=== PATIENT | male | born 1965 | race Caucasian/White ===

== ENCOUNTER 2016-11-22 21:55 | Emergency (ER) | payer MEDICAID ==
--- NOTE | 2016-11-22 23:27 | XR ---
EXAM: XR Lumbar Spine, 3 Views CLINICAL HISTORY: Reason: Pain TECHNIQUE: Frontal and lateral views of the lumbar spine. COMPARISON: No relevant prior studies available. FINDINGS: Vertebrae: Superior endplate Schmorl's nodes of L2 and L3. No acute fracture. Normal alignment. Disc spaces: Mild disc space narrowing of L4/L5 and L5/S1. Marginal osteophytes L3/L4. Soft tissues: Unremarkable. IMPRESSION: No acute findings. Superior endplate Schmorl's nodes of L2 and L3.
[2016-11-22] MEDS ORDERED: CYCLOBENZAPRINE 10MG STARTER 3 TAB BTL PO STA (23:34)
--- NOTE | 2016-11-22 23:36 | ED ---
General Adult HPI - General Chief complaint: Back Pain/Injury Stated complaint: Back Pain Time Seen by Provider: 11/22/16 22:45 Source: patient, RN notes reviewed Mode of arrival: ambulatory Limitations: no limitations - History of Present Illness Initial comments: patient 51-year-old male who presents emergency room today with chief complaint of increased lower back pain over the last day. He does admit that yesterday he was using a skid steer. He denies any specific injury or trauma at the time. He states that he noticed that he had some increased stiffness in his lower back. He states worse when he stands up straight. He states he did go to the chiropractor today with little relief the symptoms. Patient does admit that he tried ibuprofen with little relief. He also admits that he is on a blood thinner due to a cardiac stent. Patient denies any other complaints or symptoms. Denies any bowel or bladder incontinence retention. Denies any saddle anesthesia. Denies any lumbar radiculopathy. Patient denies any recent fever, chills, shortness of breath, chest pain, abdominal pain, nausea or vomiting, numbness or tingling, dysuria or hematuria, constipation or diarrhea, headaches or visual changes, or any other complaints. - Related Data Home Medications Medication Instructions Recorded Confirmed Pioglitazone [Actos] 45 mg PO DAILY 03/16/15 03/06/16 glipiZIDE XL [Glucotrol XL] 10 mg PO BID-W/MEALS 03/16/15 03/06/16 Aspirin 81 mg PO HS 03/06/16 03/06/16 Cholecalciferol [Vitamin D3] 1,000 unit PO DAILY 03/06/16 03/06/16 Rosuvastatin [Crestor] 40 mg PO HS 03/06/16 03/06/16 Previous Rx's Medication Instructions Recorded Lisinopril [Zestril] 10 mg PO DAILY #30 tab 03/17/15 Metoprolol Tartrate [Lopressor] 25 mg PO BID #60 tab 03/17/15 Ticagrelor [Brilinta] 90 mg PO BID #60 tab 03/17/15 Cyclobenzaprine [Flexeril] 10 mg PO TID #20 tab 11/22/16 Hydrocodone/Acetaminophen [[place] 1 each PO Q6HR PRN #20 tab 11/22/16 5-325] Allergies Allergy/AdvReac Type Severity Reaction Status Date / Time No Known Allergies Allergy Verified 11/22/16 22:14 Review of Systems ROS Statement: Those systems with pertinent positive or pertinent negative responses have been documented in the HPI. ROS Other: All systems not noted in ROS Statement are negative. Past Medical History Past Medical History: Coronary Artery Disease (CAD), Chest Pain / Angina, Diabetes Mellitus, Hyperlipidemia, Hypertension, Osteoarthritis (OA) History of Any Multi-Drug Resistant Organisms: None Reported Past Surgical History: Heart Catheterization With Stent, Hernia Repair, Orthopedic Surgery Additional Past Surgical History / Comment(s): RT knee SX, stent to LAD in 2014(RT GROIN SITE WAS USED) Past Anesthesia/Blood Transfusion Reactions: No Reported Reaction Date of Last Stent Placement:: 03/2015 Past Psychological History: No Psychological Hx Reported Smoking Status: Never smoker Past Alcohol Use History: None Reported Past Drug Use History: None Reported - Past Family History Father History Unknown: Yes Family Medical History: Diabetes Mellitus, Hypertension Mother History Unknown: Yes Family Medical History: Cancer Additional Family Medical History / Comment(s): bladder General Exam - General Exam Comments Initial Comments: General: The patient is awake and alert, in no distress, and does not appear acutely ill. Eye: Pupils are equal, round and reactive to light, extra-ocular movements are intact. No nystagmus. There is normal conjunctiva bilaterally. No signs of icterus. Ears, nose, mouth and throat: There are moist mucous membranes and no oral lesions. Neck: The neck is supple, there is no tenderness or JVD. Cardiovascular: There is a regular rate and rhythm. No murmur, rub or gallop is appreciated. Respiratory: Lungs are clear to auscultation, respirations are non-labored, breath sounds are equal. No wheezes, stridor, rales, or rhonchi. Musculoskeletal: Normal ROM,no appearance of thoracic, lumbar spine no step- offs forms appreciated. Mild tenderness to the lower lumbar on palpation. Pain reproduced with certain movements. Strength 5/5. Sensation intact. Pulses equal bilaterally 2+. Neurological: A&O x 3. CN II-XII intact, There are no obvious motor or sensory deficits. Coordination appears grossly intact. Speech is normal. Skin: Skin is warm and dry and no rashes or lesions are noted. Psychiatric: Cooperative, appropriate mood & affect, normal judgment. Limitations: no limitations Course Vital Signs 11/22/16 22:11 Temperature 97.8 F Pulse Rate 146 H Respiratory 18 Rate Blood Pressure 146/105 O2 Sat by Pulse 98 Oximetry Medical Decision Making - Medical Decision Making x-rays reviewed and shows no acute fracture abnormalities. Results were discussed with patient. Patient advised to use a muscle relaxer will be given a short prescription of pain medication. Advised to follow-up family doctor for further evaluation and possible MRI. Disposition Clinical Impression: Acute low back pain Disposition: HOME SELF-CARE Condition: Good Instructions: Acute Low Back Pain (ED) Additional Instructions: Please use medication as discussed. Please follow-up with family doctor in the next 2 days of symptoms have not improved. Please return to emergency room if the symptoms increase or worsen or for any other concerns. Prescriptions: Cyclobenzaprine [Flexeril] 10 mg PO TID #20 tab Hydrocodone/Acetaminophen [[place] 5-325] 1 each PO Q6HR PRN #20 tab PRN Reason: Pain Time of Disposition: 23:35
[2016-11-22 23:57] VITALS: BP 152/80; PULSE 80; RESP 16; TEMP 97.4
== END 2016-11-22 23:50 | disposition home or self-care (01) ==
LOC: EC 21:55
DX: M54.5 Low back pain (principal); E11.9 Type 2 diabetes mellitus without complications; E78.5 Hyperlipidemia, unspecified; M19.90 Unspecified osteoarthritis, unspecified site; Z79.82 Long term (current) use of aspirin; Z79.84 Long term (current) use of oral hypoglycemic drugs; Z79.899 Other long term (current) drug therapy
CPT/HCPCS: 72100; 99283

== ENCOUNTER → 2016-12-03 | Outpatient (CLI) | payer MEDICAID ==
--- NOTE | 2016-12-03 16:11 | MR ---
EXAMINATION TYPE: MR lumbar spine wo con DATE OF EXAM: 12/03/2016 3:12 PM COMPARISON: Radiographs 11/22/2016 HISTORY: 51-year-old male with low Back Pain x2 weeks TECHNIQUE: Multiplanar, multisequence images of the lumbar spine were acquired. FINDINGS: Vertebral body heights are preserved and alignment is maintained. Mild diffuse heterogeneity of marrow signal without suspicious bone marrow replacement. Intervertebral discs show variable mild desiccation and disc bulges. Facet degenerative change mid to lower lumbar spine. Conus medullaris is normal. There is congenital spinal canal stenosis with AP canal dimension of 9 mm. In addition, there is prom inent dorsal epidural fat within the mid to lower lumbar spine further narrowing the thecal sac. At T12-L1, no spinal canal or foraminal stenosis. At L1-L2, no significant spinal canal or foraminal stenosis. At L2-L3, there is mild congenital canal narrowing with minimal bilateral inferior neuroforaminal tone rowing. At L3-L4, there is moderate spinal canal stenosis secondary to bulging disc, congenital canal narrowi ng, prominent dorsal epidural fat, ligamentum flavum thickening, and facet degenerative change. There is mild left neuroforaminal stenosis. At L4-L5, there is congenital canal narrowing with prominent dorsal epidural fat, ligamentum flavum t hickening, and hypertrophic facet arthropathy. In addition, there is a superimposed left paracentral disc protrusion. There may be slight superior migration of disc material. Changes result in a moderat e to severe spinal canal stenosis at this level with moderate left and mild right neuroforaminal sten osis. At L5-S1, facet degenerative change without significant spinal canal or foraminal stenosis. There is no prevertebral or paravertebral soft tissue abnormality seen. IMPRESSION: 1. Combination of mild congenital spinal canal stenosis with degenerative disc disease, facet arthrop athy, and prominent dorsal epidural fat diffusely narrows the spinal canal in the mid to lower lumbar spine. 2. Superimposed left paracentral disc extrusion has slight superior migration and contributes to a mo derate to severe spinal canal stenosis here. Moderate left and mild right neuroforaminal stenosis at this level.
== END | disposition home or self-care (01) ==
LOC: RADMRIMAIN 14:40
PROVIDERS: ATTEND Physician Assistant Medical
DX: M48.06 Spinal stenosis, lumbar region (principal); M51.16 Intervertebral disc disorders with radiculopathy, lumbar region; M46.96 Unspecified inflammatory spondylopathy, lumbar region; M99.73 Connective tissue and disc stenosis of intervertebral foramina of lumbar region
CPT/HCPCS: 72148

== ENCOUNTER 2017-01-29 18:13 | Emergency (ER) | payer MEDICAID ==
[2017-01-29 18:24] VITALS: BP 190/99; PULSE 72; RESP 20; TEMP 97.9
[2017-01-29] MEDS ORDERED: BACITRACIN 500 UNIT/GM OINT 28.4 GM TUBE TOPICAL ONE (18:33)
--- NOTE | 2017-01-29 18:34 | ED ---
Burn/Smoke HPI - General Chief complaint: Burn/Smoke Inhalation Stated complaint: Burn on Hand Time Seen by Provider: 01/29/17 18:25 Source: patient, RN notes reviewed Mode of arrival: ambulatory Limitations: no limitations - History of Present Illness Initial comments: 52-year-old male presents emergency Department chief complaint right hand logical burn. Patient states he was working on some wiring at his house. Patient states that the cause dark and it causes a burn over his thumb in index finger. Patient's tetanus is up-to-date within last 5 years. Patient states that he has full range of motion of the digits states there is moderate discomfort. Patient denies any chest pain or shortness of breath no headache no dizziness no other areas of kelly noted. - Related Data Home Medications Medication Instructions Recorded Confirmed Pioglitazone [Actos] 45 mg PO DAILY 03/16/15 03/06/16 glipiZIDE XL [Glucotrol XL] 10 mg PO BID-W/MEALS 03/16/15 03/06/16 Aspirin 81 mg PO HS 03/06/16 03/06/16 Cholecalciferol [Vitamin D3] 1,000 unit PO DAILY 03/06/16 03/06/16 Rosuvastatin [Crestor] 40 mg PO HS 03/06/16 03/06/16 Previous Rx's Medication Instructions Recorded Lisinopril [Zestril] 10 mg PO DAILY #30 tab 03/17/15 Metoprolol Tartrate [Lopressor] 25 mg PO BID #60 tab 03/17/15 Ticagrelor [Brilinta] 90 mg PO BID #60 tab 03/17/15 Cyclobenzaprine [Flexeril] 10 mg PO TID #20 tab 11/22/16 Hydrocodone/Acetaminophen [[place] 1 each PO Q6HR PRN #20 tab 11/22/16 5-325] Allergies Allergy/AdvReac Type Severity Reaction Status Date / Time No Known Allergies Allergy Verified 01/29/17 18:24 Review of Systems ROS Statement: Those systems with pertinent positive or pertinent negative responses have been documented in the HPI. ROS Other: All systems not noted in ROS Statement are negative. Past Medical History Past Medical History: Coronary Artery Disease (CAD), Chest Pain / Angina, Diabetes Mellitus, Hyperlipidemia, Hypertension, Osteoarthritis (OA) History of Any Multi-Drug Resistant Organisms: None Reported Past Surgical History: Heart Catheterization With Stent, Hernia Repair, Orthopedic Surgery Additional Past Surgical History / Comment(s): RT knee SX, stent to LAD in 2014(RT GROIN SITE WAS USED) Past Anesthesia/Blood Transfusion Reactions: No Reported Reaction Date of Last Stent Placement:: 03/2015 Past Psychological History: No Psychological Hx Reported Smoking Status: Never smoker Past Alcohol Use History: None Reported Past Drug Use History: None Reported - Past Family History Father History Unknown: Yes Family Medical History: Diabetes Mellitus, Hypertension Mother History Unknown: Yes Family Medical History: Cancer Additional Family Medical History / Comment(s): bladder General Exam Limitations: no limitations General appearance: alert, in no apparent distress Respiratory exam: Present: normal lung sounds bilaterally. Absent: respiratory distress, wheezes, rales, rhonchi, stridor Cardiovascular Exam: Present: regular rate, normal rhythm, normal heart sounds. Absent: systolic murmur, diastolic murmur, rubs, gallop, clicks Extremities exam: Present: other (Right hand there is some blistering noted to the distal tip of the first digit and along the lateral portion of the second digit there is no circumferential kelly across any joint.) Neurological exam: Present: reflexes normal. Absent: motor sensory deficit Skin exam: Present: warm, dry Course Vital Signs 01/29/17 18:22 Temperature 97.9 F Pulse Rate 72 Respiratory 20 Rate Blood Pressure 190/99 O2 Sat by Pulse 98 Oximetry Medical Decision Making - Medical Decision Making 52-year-old male presented for electrical burn. Patient does have symptoms areas of second-degree burning with no circumferential joint kelly. Patient was given bacitracin was offered pain meds he declined. Patient advised to take anti-inflammatories if he can. Disposition Clinical Impression: Electrical burn Disposition: HOME SELF-CARE Condition: Stable Instructions: Electrical Kelly in Adults (ED) Additional Instructions: Please return to the Emergency Department if symptoms worsen or any other concerns. Referrals: Prabhakar Osborne DO [Primary Care Provider] - 1-2 days Time of Disposition: 18:34
== END 2017-01-29 18:49 | disposition home or self-care (01) ==
LOC: EC 18:13
DX: T23.211A Burn of second degree of right thumb (nail), initial encounter (principal); T23.221A Burn of second degree of single right finger (nail) except thumb, initial encounter; T31.0 Burns involving less than 10% of body surface; E78.5 Hyperlipidemia, unspecified; I25.10 Atherosclerotic heart disease of native coronary artery without angina pectoris; E11.9 Type 2 diabetes mellitus without complications; M19.90 Unspecified osteoarthritis, unspecified site; Z79.82 Long term (current) use of aspirin; Z79.84 Long term (current) use of oral hypoglycemic drugs; Z79.899 Other long term (current) drug therapy; W86.0XXA Exposure to domestic wiring and appliances, initial encounter; Y92.009 Unspecified place in unspecified non-institutional (private) residence as the place of occurrence of the external cause; Y93.89 Activity, other specified
CPT/HCPCS: 99284

== ENCOUNTER 2018-02-21 22:22 | Inpatient (IN) | payer MEDICAID ==
[2018-02-21 22:51] LABS: Basophils % (A) 1 %; Eosinophils # (A) 0.2 k/uL (0-0.7); Eosinophils % (A) 3 %; HCT 47.1 % (39.0-53.0); HGB 16.8 gm/dL (13.0-17.5); Lymphocytes % (A) 32 %; MCH 31.7 pg (25.0-35.0); MCHC 35.8 g/dL (31.0-37.0); MCV 88.7 fL (80.0-100.0); Mean Platelet Volume 7.4; Monocytes # (A) 0.4 k/uL (0-1.0); Monocytes % (A) 7 %; Neutrophils # (A) 3.5 k/uL (1.3-7.7); Neutrophils % (A) 55 %; Platelet Count 186 k/uL (150-450); RBC 5.31 m/uL (4.30-5.90); RDW 12.8 % (11.5-15.5); WBC 6.3 k/uL (3.8-10.6)
[2018-02-21 22:58] LABS: Prothrombin Time 10.1 sec (9.0-12.0)
[2018-02-21] MEDS ORDERED: ASPIRIN 325 MG TAB PO STA (22:58)
--- NOTE | 2018-02-21 22:58 | ED ---
General Adult HPI - General Chief complaint: Chest Pain Stated complaint: Chest Pain Time Seen by Provider: 02/21/18 22:34 Source: patient, RN notes reviewed, old records reviewed Mode of arrival: ambulatory Limitations: no limitations - History of Present Illness Initial comments: 53-year-old male with history of CAD status post stent approximately 3 years ago presents for evaluation of chest pain. Patient's pain has been present for the past 1-1/2 days. Initially began on the right, has progressed to left- sided. Sharp in nature lasting just seconds. Patient states that he is also had some pain in his shoulder blade and left arm. Symptoms are similar to previous chest pain episode that resulted in stent placement. No nausea vomiting. No abdominal pain. He does report some diaphoresis and some dyspnea associated with his chest pain. No history of tobacco use. He is a diabetic and has history of hypertension. He's been off of his medication for the past several weeks secondary to family stressors. - Related Data Home Medications Medication Instructions Recorded Confirmed Pioglitazone [Actos] 45 mg PO DAILY 03/16/15 03/06/16 glipiZIDE XL [Glucotrol XL] 10 mg PO BID-W/MEALS 03/16/15 03/06/16 Aspirin 81 mg PO HS 03/06/16 03/06/16 Cholecalciferol [Vitamin D3] 1,000 unit PO DAILY 03/06/16 03/06/16 Rosuvastatin [Crestor] 40 mg PO HS 03/06/16 03/06/16 Previous Rx's Medication Instructions Recorded Lisinopril [Zestril] 10 mg PO DAILY #30 tab 03/17/15 Metoprolol Tartrate [Lopressor] 25 mg PO BID #60 tab 03/17/15 Ticagrelor [Brilinta] 90 mg PO BID #60 tab 03/17/15 Cyclobenzaprine [Flexeril] 10 mg PO TID #20 tab 11/22/16 Hydrocodone/Acetaminophen [[place] 1 each PO Q6HR PRN #20 tab 11/22/16 5-325] Allergies Allergy/AdvReac Type Severity Reaction Status Date / Time No Known Allergies Allergy Verified 02/21/18 22:27 Review of Systems ROS Statement: Those systems with pertinent positive or pertinent negative responses have been documented in the HPI. ROS Other: All systems not noted in ROS Statement are negative. Past Medical History Past Medical History: Coronary Artery Disease (CAD), Chest Pain / Angina, Diabetes Mellitus, Hyperlipidemia, Hypertension, Osteoarthritis (OA) History of Any Multi-Drug Resistant Organisms: None Reported Past Surgical History: Heart Catheterization With Stent, Hernia Repair, Orthopedic Surgery Additional Past Surgical History / Comment(s): RT knee SX, stent to LAD in 2014(RT GROIN SITE WAS USED) Past Anesthesia/Blood Transfusion Reactions: No Reported Reaction Date of Last Stent Placement:: 03/2015 Past Psychological History: No Psychological Hx Reported Smoking Status: Never smoker Past Alcohol Use History: None Reported Past Drug Use History: None Reported - Past Family History Father History Unknown: Yes Family Medical History: Diabetes Mellitus, Hypertension Mother History Unknown: Yes Family Medical History: Cancer Additional Family Medical History / Comment(s): bladder General Exam Limitations: no limitations General appearance: alert, in no apparent distress Head exam: Present: atraumatic, normocephalic Eye exam: Present: normal appearance, PERRL, EOMI ENT exam: Present: normal exam Neck exam: Present: normal inspection. Absent: tenderness, meningismus Respiratory exam: Present: normal lung sounds bilaterally. Absent: respiratory distress, wheezes Cardiovascular Exam: Present: regular rate, normal rhythm GI/Abdominal exam: Present: soft. Absent: distended, tenderness Extremities exam: Present: normal inspection, normal capillary refill. Absent: pedal edema, calf tenderness Neurological exam: Present: alert, oriented X3, CN II-XII intact. Absent: motor sensory deficit Psychiatric exam: Present: normal affect, normal mood Skin exam: Present: warm, dry, intact. Absent: cyanosis, diaphoretic Course Vital Signs 02/21/18 02/21/18 02/21/18 22:25 22:43 23:22 Temperature 98.4 F Pulse Rate 71 68 Pulse Rate [ 67 [employer] T[employer] ] Respiratory 18 18 Rate Blood Pressure 194/93 136/75 O2 Sat by Pulse 100 100 Oximetry EKG Findings - EKG Comments: EKG Findings:: EKG: Normal sinus rhythm, rate of 73, OR interval 154, QRS duration 90, QTC [address] segment elevation or depression T-wave flattening in the leads 3 and aVF. Medical Decision Making - Medical Decision Making 53-year-old male presenting with chest pain. Patient has history of CAD, he's been off his medications for the past several weeks to months. EKG is negative for ST segment elevation. CBC, CMP are within normal limits, troponin is negative. Patient is restarted on his home medications. He will be kept in observation for serial cardiac enzymes and cardiology consultation. - Lab Data Result diagrams: 02/21/18 22:35 02/21/18 22:35 Lab Results 02/21/18 02/21/18 02/21/18 Range/Units 22:35 22:35 22:35 WBC 6.3 (3.8-10.6) k/uL RBC 5.31 (4.30-5.90) m/uL Hgb 16.8 (13.0-17.5) gm/dL Hct 47.1 (39.0-53.0) % MCV 88.7 (80.0-100.0) fL MCH 31.7 (25.0-35.0) pg MCHC 35.8 (31.0-37.0) g/dL RDW 12.8 (11.5-15.5) % Plt Count 186 (150-450) k/uL Neutrophils % 55 % Lymphocytes % 32 % Monocytes % 7 % Eosinophils % 3 % Basophils % 1 % Neutrophils # 3.5 (1.3-7.7) k/uL Lymphocytes # 2.0 (1.0-4.8) k/uL Monocytes # 0.4 (0-1.0) k/uL Eosinophils # 0.2 (0-0.7) k/uL Basophils # 0.0 (0-0.2) k/uL PT (9.0-12.0) sec INR (<1.2) APTT (22.0-30.0) sec Sodium 137 (137-145) mmol/L Potassium 4.1 (3.5-5.1) mmol/L Chloride 102 (98-107) mmol/L Carbon Dioxide 26 (22-30) mmol/L Anion Gap 9 mmol/L BUN 14 (9-20) mg/dL Creatinine 0.70 (0.66-1.25) mg/dL Est GFR (CKD-EPI)AfAm >90 (>60 ml/min/1.73 sqM) Est GFR (CKD-EPI)NonAf >90 (>60 ml/min/1.73 sqM) Glucose 268 H (74-99) mg/dL Calcium 9.4 (8.4-10.2) mg/dL Magnesium 1.9 (1.6-2.3) mg/dL Total Bilirubin 0.5 (0.2-1.3) mg/dL AST 35 (17-59) U/L ALT 60 (21-72) U/L Alkaline Phosphatase 73 (38-126) U/L Total Creatine Kinase 170 (55-170) U/L CK-MB (CK-2) 1.8 (0.0-2.4) ng/mL CK-MB (CK-2) Rel Index 1.1 Troponin I <0.012 (0.000-0.034) ng/mL NT-Pro-B Natriuret Pep pg/mL Total Protein 7.4 (6.3-8.2) g/dL Albumin 4.5 (3.5-5.0) g/dL 02/21/18 02/21/18 Range/Units 22:35 22:35 WBC (3.8-10.6) k/uL RBC (4.30-5.90) m/uL Hgb (13.0-17.5) gm/dL Hct (39.0-53.0) % MCV (80.0-100.0) fL MCH (25.0-35.0) pg MCHC (31.0-37.0) g/dL RDW (11.5-15.5) % Plt Count (150-450) k/uL Neutrophils % % Lymphocytes % % Monocytes % % Eosinophils % % Basophils % % Neutrophils # (1.3-7.7) k/uL Lymphocytes # (1.0-4.8) k/uL Monocytes # (0-1.0) k/uL Eosinophils # (0-0.7) k/uL Basophils # (0-0.2) k/uL PT 10.1 (9.0-12.0) sec INR 1.0 (<1.2) APTT 25.0 (22.0-30.0) sec Sodium (137-145) mmol/L Potassium (3.5-5.1) mmol/L Chloride (98-107) mmol/L Carbon Dioxide (22-30) mmol/L Anion Gap mmol/L BUN (9-20) mg/dL Creatinine (0.66-1.25) mg/dL Est GFR (CKD-EPI)AfAm (>60 ml/min/1.73 sqM) Est GFR (CKD-EPI)NonAf (>60 ml/min/1.73 sqM) Glucose (74-99) mg/dL Calcium (8.4-10.2) mg/dL Magnesium (1.6-2.3) mg/dL Total Bilirubin (0.2-1.3) mg/dL AST (17-59) U/L ALT (21-72) U/L Alkaline Phosphatase (38-126) U/L Total Creatine Kinase (55-170) U/L CK-MB (CK-2) (0.0-2.4) ng/mL CK-MB (CK-2) Rel Index Troponin I (0.000-0.034) ng/mL NT-Pro-B Natriuret Pep 52 pg/mL Total Protein (6.3-8.2) g/dL Albumin (3.5-5.0) g/dL Disposition Clinical Impression: Chest pain Disposition: ADMITTED IP TO THIS HOSP Condition: Stable Referrals: Prabhakar Osborne DO [Primary Care Provider] - 1-2 days Decision to Admit Reason: Admit from EC Decision Date: 02/22/18 Decision Time: 00:06
--- NOTE | 2018-02-21 23:00 | XR ---
EXAMINATION TYPE: XR chest 2V DATE OF EXAM: 02/21/2018 COMPARISON: 03/06/2016 HISTORY: Chest pain TECHNIQUE: Frontal and lateral views of the chest are obtained. FINDINGS: Heart and mediastinum are normal. Lungs are clear. Diaphragm is normal. Bony thorax is int act. There are chest leads. IMPRESSION: Normal chest. No change.
[2018-02-21 23:08] LABS: ALT 60 U/L (21-72); AST 35 U/L (17-59); Albumin 4.5 g/dL (3.5-5.0); Alkaline Phosphatase 73 U/L (38-126); Anion Gap 9 mmol/L; Blood Urea Nitrogen 14 mg/dL (9-20); Calcium 9.4 mg/dL (8.4-10.2); Carbon Dioxide 26 mmol/L (22-30); Chloride 102 mmol/L (98-107); Glucose 268 mg/dL (74-99); Magnesium 1.9 mg/dL (1.6-2.3); Potassium 4.1 mmol/L (3.5-5.1); Sodium 137 mmol/L (137-145); Total Bilirubin 0.5 mg/dL (0.2-1.3); Total Protein 7.4 g/dL (6.3-8.2)
[2018-02-21 23:12] LABS: Creatine Kinase 170 U/L (55-170)
[2018-02-21 23:24] LABS: Creatine Kinase MB 1.8 ng/mL (0.0-2.4); Troponin I <0.012 ng/mL (0.000-0.034)
[2018-02-21] MEDS ORDERED: HYDROcodone/APAP 5-325MG 1 EACH TAB PO PRN (23:36)
[2018-02-22] MEDS ORDERED: ONDANSETRON 4 MG/2 ML VIAL IVP PRN (00:04)
[2018-02-22] MEDS ORDERED: NALOXONE 0.4 MG/ML 1 ML VIAL IV PRN (00:04)
[2018-02-22 07:28] LABS: Glucose,Whole Blood 266 mg/dL (75-99)
[2018-02-22 08:16] LABS: Creatine Kinase 105 U/L (55-170)
[2018-02-22 08:27] LABS: Creatine Kinase MB 1.4 ng/mL (0.0-2.4); Troponin I <0.012 ng/mL (0.000-0.034)
[2018-02-22] MEDS ORDERED: TICAGRELOR 90 MG TAB PO SCH (09:00)
--- NOTE | 2018-02-22 10:31 | CONS ---
CONSULTATION DATE OF SERVICE: 02/22/2018. HISTORY: Mr. Manning is a 53-year-old gentleman who is seen for cardiac evaluation. This patient has a known history of coronary artery disease. Patient had a stent to the LAD about 3 years ago. The patient was admitted with symptoms of atypical angina about 1-1/2 years ago. At that time, the patient had a stress echo study done which was normal. Since then, the patient has not been seen in the office. The patient has a history of diabetes and hyperlipidemia. The patient states he is not taking his medications regularly. He takes aspirin intermittently and has not been taking Brilinta. The patient is moderately active physically. He does have a history of hypertension. Denies any history of tobacco use. MEDICATIONS: Patient's home medications are reviewed. PAST MEDICAL HISTORY: Includes diabetes, hypertension, hyperlipidemia, hernia repair, orthopedic surgery, right knee surgery. PHYSICAL EXAMINATION: Physical examination in the emergency room revealed the patient's blood pressure was elevated. Patient's blood pressure is now 117/76 mmHg, heart rate is 65 per minute. Head and ENT examination is negative. Neck is supple. There is no increase in jugular venous pressure. Both the carotid pulses are felt. There is no bruit. Chest is symmetrical. Heart the PMI is not felt. First and second heart sounds are normal. There is no evidence of any murmur. Lungs are clinically clear to auscultation and percussion. Abdomen is soft. Liver and spleen are not enlarged. Bowel sounds are heard. Extremities, peripheral pulses are 2+. EKG shows normal sinus rhythm without any acute ischemic changes. Cardiac enzymes are normal. The patient's EKG is normal. IMPRESSION: Intermittent chest discomfort and shortness of breath yesterday, suggestive of unstable angina. Rule out any evidence of significant re-stenosis. Patient is not complying with his medications. He was not taking Brilinta. Patient has a history of hypertension and diabetes as well as hyperlipidemia. RECOMMENDATIONS: We will do serial EKGs. Echo and Doppler study will be done. The patient is advised further evaluation with cardiac catheterization for definitive diagnosis. At present, I would discontinue the Brilinta since his angioplasty was done about 3 years ago and he has not been taking his medications recently. MMODL / IJN: [id number] /
[2018-02-22 11:25] LABS: Creatine Kinase 93 U/L (55-170)
[2018-02-22] MEDS: glipiZIDE 5 MG TAB PO SCH ×2 (11:28→17:47)
[2018-02-22] MEDS: LISINOPRIL 10 MG TAB PO SCH (11:28)
[2018-02-22] MEDS: METOPROLOL TARTRATE 25 MG TAB PO SCH ×2 (11:28→20:15)
[2018-02-22 11:37] LABS: Creatine Kinase MB 1.3 ng/mL (0.0-2.4); Troponin I <0.012 ng/mL (0.000-0.034)
[2018-02-22 11:46] LABS: Glucose,Whole Blood 366 mg/dL (75-99)
--- NOTE | 2018-02-22 15:19 | ECHOF ---
Referral Reason:chest pain MEASUREMENTS -------- HEIGHT: 170.2 cm WEIGHT: 91.2 kg BP: RVIDd: 2.9 cm (< 3.3) IVSd: 1.4 cm (0.6 - 1.1) LVIDd: 4.1 cm (3.9 - 5.3) LVPWd: 1.2 cm (0.6 - 1.1) IVSs: 1.7 cm LVIDs: 3.0 cm LVPWs: 1.5 cm LA Diam: 4.1 cm (2.7 - 3.8) LAESV Index (A-L): 26.84 ml/m Ao Diam: 2.9 cm (2.0 - 3.7) AV Cusp: 2.0 cm (1.5 - 2.6) LA Diam: 5.1 cm (2.7 - 3.8) MV EXCURSION: 19.783 mm (> 18.000) MV EF SLOPE: 74 mm/s (70 - 150) EPSS: 0.3 cm MV E Arsen: 0.62 m/s MV DecT: 200 ms MV A Arsen: 0.78 m/s MV E/A Ratio: 0.79 RAP: 5.00 mmHg RVSP: 14.52 mmHg FINDINGS -------- Sinus rhythm. This was a technically adequate study. The left ventricular size is normal. There is moderate concentric left ventricular hypertrophy. O verall left ventricular systolic function is low-normal with, an EF between 50 - 55 %. The right ventricle is normal in size. The left atrium is mildly dilated. The right atrial size is normal. The aortic valve is trileaflet, and appears structurally normal. No aortic stenosis or regurgitation. Mild mitral regurgitation is present. Mild tricuspid regurgitation present. There is no evidence of pulmonary hypertension. The right v entricular systolic pressure, as measured by Doppler, is 14.52mmHg. There is no pulmonic regurgitation present. The aortic root size is normal. There is no pericardial effusion. CONCLUSIONS -------- 1. The left ventricular size is normal. 2. There is moderate concentric left ventricular hypertrophy. 3. Overall left ventricular systolic function is low-normal with, an EF between 50 - 55 %. 4. The right ventricle is normal in size. 5. The left atrium is mildly dilated. 6. The right atrial size is normal. 7. The aortic valve is trileaflet, and appears structurally normal. No aortic stenosis or regurgitati on. 8. Mild mitral regurgitation is present. 9. Mild tricuspid regurgitation present. 10. There is no evidence of pulmonary hypertension. 11. The right ventricular systolic pressure, as measured by Doppler, is 14.52mmHg. 12. There is no pulmonic regurgitation present. 13. The aortic root size is normal. 14. There is no pericardial effusion. GAS AND OIL CHECKER: Deana Bobby RDCS
[2018-02-22 17:35] LABS: Glucose,Whole Blood 242 mg/dL (75-99)
[2018-02-22 18:18] LABS: Hemoglobin A1C 12.7 % (4.0-6.0)
[2018-02-22] MEDS: ATORVASTATIN 80 MG TAB PO SCH (20:15)
[2018-02-22] MEDS: ASPIRIN 81 MG PO SCH (20:15)
[2018-02-22 20:34] LABS: Glucose,Whole Blood 295 mg/dL (75-99)
[2018-02-22] MEDS: INSULIN ASPART 100 UNIT/ML 1 ML 10 ML VIAL SQ SCH (20:59)
[2018-02-23 06:01] LABS: Glucose,Whole Blood 241 mg/dL (75-99)
[2018-02-23] MEDS: INSULIN ASPART 100 UNIT/ML 1 ML 10 ML VIAL SQ SCH ×4 (06:26→20:29)
[2018-02-23] MEDS: glipiZIDE 5 MG TAB PO SCH ×2 (06:26→17:52)
[2018-02-23] MEDS: METOPROLOL TARTRATE 25 MG TAB PO SCH ×2 (09:03→20:29)
[2018-02-23] MEDS: LISINOPRIL 10 MG TAB PO SCH (09:03)
[2018-02-23] MEDS ORDERED: NITROGLYCERIN SL TABS 0.4 MG TAB SUBLINGUAL PRN (09:18)
[2018-02-23] MEDS ORDERED: ALPRAZolam 0.25 MG TAB PO PRN (09:18)
[2018-02-23] MEDS ORDERED: ALPRAZolam 0.5 MG TAB PO PRN (09:18)
[2018-02-23] MEDS ORDERED: SODIUM CHLORIDE 0.9% 1,000 ML in EMPTY BAG 1 BAG IV ONE (09:18)
[2018-02-23 11:25] LABS: Glucose,Whole Blood 255 mg/dL (75-99)
--- NOTE | 2018-02-23 13:23 | P.HPIM ---
History of Present Illness H&P Date: 02/22/18 Chief Complaint: Chest pain 53-year-old male with history of CAD status post stent approximately 3 years ago presents for evaluation of chest pain. Patient's pain has been present for the past 1-1/2 days. Initially began on the right, has progressed to left- sided. Sharp in nature lasting just seconds. Patient states that he is also had some pain in his shoulder blade and left arm. Symptoms are similar to previous chest pain episode that resulted in stent placement. No nausea vomiting. No abdominal pain. He does report some diaphoresis and some dyspnea associated with his chest pain. No history of tobacco use. He is a diabetic and has history of hypertension. He's been off of his medication for the past several weeks secondary to family stressors. Patient is a known history of coronary artery disease and had a stent to LAD about 3 years ago; patient was admitted about a year and a half ago at which time stress echo was done which was unremarkable; patient has been noncompliant with his medications and has been taking aspirin intermittently and has not been taking Brilinta Review of Systems Constitutional: Denies anorexia, Denies fever Eyes: denies blurred vision, denies loss of vision Ears: deny: ear discharge, earache Ears, nose, mouth and throat: Denies epistaxis, Denies headache, Denies hoarseness Cardiovascular: Reports chest pain, Reports dyspnea on exertion, Denies rapid heart beat Respiratory: Denies congestion, Denies cough with sputum, Denies wheezing Gastrointestinal: Denies abdominal pain, Denies nausea, Denies vomiting Genitourinary: Denies dysuria, Denies hematuria Musculoskeletal: Denies atrophy, Denies low back pain Integumentary: Denies color changes, Denies depigmentation, Denies rash Neurological: Denies confusion, Denies double vision, Denies paresthesias Endocrine: Denies excessive thirst, Denies heat intolerance, Denies polydipsia, Denies polyuria Hematologic/Lymphatic: Denies easy bleeding, Denies easy bruising, Denies lymphadenopathy Past Medical History Past Medical History: Coronary Artery Disease (CAD), Chest Pain / Angina, Diabetes Mellitus, Hyperlipidemia, Hypertension, Osteoarthritis (OA) History of Any Multi-Drug Resistant Organisms: None Reported Past Surgical History: Heart Catheterization With Stent, Hernia Repair, Orthopedic Surgery Additional Past Surgical History / Comment(s): RT knee SX, stent to LAD in 2014(RT GROIN SITE WAS USED) Past Anesthesia/Blood Transfusion Reactions: No Reported Reaction Date of Last Stent Placement:: 03/2015 Past Psychological History: No Psychological Hx Reported Smoking Status: Never smoker Past Alcohol Use History: None Reported Past Drug Use History: None Reported - Past Family History Father History Unknown: Yes Family Medical History: Diabetes Mellitus, Hypertension Mother History Unknown: Yes Family Medical History: Cancer Additional Family Medical History / Comment(s): bladder Medications and Allergies Home Medications Medication Instructions Recorded Confirmed Type glipiZIDE XL [Glucotrol XL] 10 mg PO BID-W/MEALS 03/16/15 02/22/18 History Lisinopril [Zestril] 10 mg PO DAILY #30 tab 03/17/15 02/22/18 Rx Metoprolol Tartrate [Lopressor] 25 mg PO BID #60 tab 03/17/15 02/22/18 Rx Cholecalciferol [Vitamin D3] 1,000 unit PO DAILY 03/06/16 02/22/18 History Rosuvastatin Calcium [Crestor] 40 mg PO DAILY 02/23/18 02/23/18 History Allergies Allergy/AdvReac Type Severity Reaction Status Date / Time No Known Allergies Allergy Verified 02/22/18 13:06 Physical Exam Vitals: Vital Signs Temp Pulse Pulse Pulse Resp BP BP 02/22/18 08:00 98.3 F 63 18 117/76 02/22/18 04:00 67 16 02/22/18 03:49 97.6 F 67 16 130/71 02/22/18 01:00 59 L 16 02/22/18 00:40 98.2 F 58 L 16 167/90 02/22/18 00:27 97.5 F L 59 L 18 152/89 02/21/18 23:22 68 18 136/75 02/21/18 22:43 67 02/21/18 22:25 98.4 F 71 18 194/93 Pulse Ox 02/22/18 08:00 95 02/22/18 04:00 02/22/18 03:49 97 02/22/18 01:00 02/22/18 00:40 98 02/22/18 00:27 100 02/21/18 23:22 100 02/21/18 22:43 02/21/18 22:25 100 Intake and Output 02/21/18 02/22/18 02/22/18 22:59 06:59 14:59 Other: Voiding Method Toilet Toilet Weight 91.671 kg 91.4 kg - Constitutional General appearance: Present: average body habitus, cooperative, no acute distress - EENT Eyes: Present: anicteric sclerae, EOMI, PERRLA, normal appearance ENT: Present: hearing grossly normal, normal oropharynx Ears: bilateral: normal - Neck Neck: Present: normal ROM. Absent: lymphadenopathy, rigidity, thyromegaly Carotids: negative: bruit present Thyroid: bilateral: normal size, negative: enlarged, nodule - Respiratory Respiratory: bilateral: CTA, negative: rales, rhonchi, wheezing - Cardiovascular Rhythm: regular Heart sounds: normal: S1, S2 Abnormal Heart Sounds: Absent: systolic murmur, diastolic murmur - Gastrointestinal General gastrointestinal: Present: normal bowel sounds, soft. Absent: distended , organomegaly, tenderness - Genitourinary Genitourinary Comment(s): deferred - Integumentary Integumentary: Present: normal turgor. Absent: jaundiced, rash, ulcer - Neurologic Neurologic: Present: CNII-XII intact. Absent: focal deficits - Musculoskeletal Musculoskeletal: Present: gait normal, strength equal bilaterally - Psychiatric Psychiatric: Present: A&O x's 3, appropriate affect, intact judgment & insight Results CBC & Chem 7: 02/21/18 22:35 02/21/18 22:35 Labs: Abnormal Lab Results - Last 24 Hours (Table) 02/21/18 02/22/18 Range/Units 22:35 07:26 Glucose 268 H (74-99) mg/dL POC Glucose (mg/dL) 266 H (75-99) mg/dL Thrombosis Risk Factor Assmnt - Choose All That Apply Each Factor Represents 1 point: Age 41-60 years Thrombosis Risk Factor Assessment Total Risk Factor Score: 1 Thrombosis Risk Factor Assessment Level: Low Risk Assessment and Plan Assessment: 1. Chest pain/unstable angina - We will continue to monitor EKG and trend troponin - Order 2-D echocardiogram - Patient remains on aspirin, beta blockers and statins - Cardiology consultation is done and recommending cardiac catheterization for definitive diagnosis - Patient has been noncompliant with this medication and Brilinta has been discontinued by cardiology to further evaluation 2. Uncontrolled hypertension; restart patient on lisinopril 10 mg daily along with metoprolol 25 mg twice a day - We will continue to monitor blood pressure closely and adjust medications if needed 3. Hyperglycemia without acidosis/ diabetes mellitus type 2 - Patient has been very noncompliant with his medication - We will restart home oral hypoglycemic medications and monitor blood sugars closely - We will use NovoLog sliding scale if needed 4. Hyperlipidemia; start patient on Lipitor 80 mg by mouth daily at bedtime 5. Vitamin D deficiency; patient will resume his home dose of vitamin D upon discharge 6. DVT prophylaxis; SCDs CODE STATUS; full code Time with Patient: Greater than 30
--- NOTE | 2018-02-23 13:26 | P.PN ---
Subjective Progress Note Date: 02/23/18 Principal diagnosis: Chest pain/unstable angina 53-year-old male patient with history of coronary artery disease with status post stenting 3 years ago presents with evaluation of chest pain; patient has been noncompliant to his medication; he is seen and evaluated by cardiology service and is recommended cardiac catheterization tomorrow morning 02/23/2018 Patient is seen and evaluated in the room at bedside; claims he has episodes of chest pain off and on lasting about 10-15 seconds and resolved without any intervention; he is scheduled for heart catheterization tomorrow morning Objective - Vital Signs Vital signs: Vital Signs Temp 97.6 F 02/23/18 12:00 Pulse 62 02/23/18 12:00 Resp 16 02/23/18 12:00 BP 126/74 02/23/18 12:00 Pulse Ox 96 02/23/18 12:00 Intake & Output 02/22/18 02/23/18 02/23/18 18:59 06:59 18:59 Intake Total 480 20 240 Balance 480 20 240 Weight 89.4 kg Intake: IV 20 0.9 20 Oral 480 240 Other: Voiding Method Toilet Toilet - Exam - Constitutional General appearance: Present: average body habitus, cooperative, no acute distress - EENT Eyes: Present: anicteric sclerae, EOMI, PERRLA, normal appearance ENT: Present: hearing grossly normal, normal oropharynx Ears: bilateral: normal - Neck Neck: Present: normal ROM. Absent: lymphadenopathy, rigidity, thyromegaly Carotids: negative: bruit present Thyroid: bilateral: normal size, negative: enlarged, nodule - Respiratory Respiratory: bilateral: CTA, negative: rales, rhonchi, wheezing - Cardiovascular Rhythm: regular Heart sounds: normal: S1, S2 Abnormal Heart Sounds: Absent: systolic murmur, diastolic murmur - Gastrointestinal General gastrointestinal: Present: normal bowel sounds, soft. Absent: distended , organomegaly, tenderness - Genitourinary Genitourinary Comment(s): deferred - Integumentary Integumentary: Present: normal turgor. Absent: jaundiced, rash, ulcer - Neurologic Neurologic: Present: CNII-XII intact. Absent: focal deficits - Musculoskeletal Musculoskeletal: Present: gait normal, strength equal bilaterally - Psychiatric Psychiatric: Present: A&O x's 3, appropriate affect, intact judgment & insight - Labs CBC & Chem 7: 02/21/18 22:35 02/21/18 22:35 Labs: Abnormal Lab Results - Last 24 Hours (Table) 02/22/18 02/22/18 02/22/18 Range/Units 06:14 17:29 20:33 POC Glucose (mg/dL) 242 H 295 H (75-99) mg/dL Hemoglobin A1c 12.7 H (4.0-6.0) % 02/23/18 02/23/18 Range/Units 05:59 11:23 POC Glucose (mg/dL) 241 H 255 H (75-99) mg/dL Hemoglobin A1c (4.0-6.0) % Assessment and Plan Assessment: 1. Chest pain/unstable angina - We will continue to monitor EKG and trend troponin - Order 2-D echocardiogram - Patient remains on aspirin, beta blockers and statins - Cardiology consultation is done and recommending cardiac catheterization for definitive diagnosis - Patient has been noncompliant with this medication and Brilinta has been discontinued by cardiology to further evaluation 2. Uncontrolled hypertension; restart patient on lisinopril 10 mg daily along with metoprolol 25 mg twice a day - We will continue to monitor blood pressure closely and adjust medications if needed 3. Hyperglycemia without acidosis/ diabetes mellitus type 2 - Patient has been very noncompliant with his medication - We will restart home oral hypoglycemic medications and monitor blood sugars closely - We will use NovoLog sliding scale if needed 4. Hyperlipidemia; start patient on Lipitor 80 mg by mouth daily at bedtime 5. Vitamin D deficiency; patient will resume his home dose of vitamin D upon discharge 6. DVT prophylaxis; SCDs CODE STATUS; full code Disposition; patient is scheduled for cardiac catheterization tomorrow morning; further recommendations pending angiographic results Time with Patient: Greater than 30
[2018-02-23 16:40] LABS: Glucose,Whole Blood 315 mg/dL (75-99)
[2018-02-23 20:25] LABS: Glucose,Whole Blood 242 mg/dL (75-99)
[2018-02-23] MEDS: ATORVASTATIN 80 MG TAB PO SCH (20:29)
[2018-02-23] MEDS: ASPIRIN 81 MG PO SCH (20:29)
--- NOTE | 2018-02-24 04:23 | PN ---
PROGRESS NOTE This patient is admitted with chest pain. The patient is feeling well. Denies any discomfort. Blood pressure is 140/76 mmHg. Heart S1 and S2 normal. Lungs are clinically clear to auscultation and percussion. The patient is scheduled for cardiac cath tomorrow. DADA / CHRISTINA: [id number] /
[2018-02-24] MEDS: METOPROLOL TARTRATE 25 MG TAB PO SCH ×2 (05:55→20:12)
[2018-02-24] MEDS: LISINOPRIL 10 MG TAB PO SCH (05:55)
[2018-02-24 05:56] LABS: Glucose,Whole Blood 188 mg/dL (75-99)
[2018-02-24] MEDS ORDERED: ASPIRIN 325 MG TAB PO ONE (06:00)
[2018-02-24] MEDS ORDERED: ATORVASTATIN 80 MG TAB PO ONE (06:00)
[2018-02-24] MEDS: INSULIN ASPART 100 UNIT/ML 1 ML 10 ML VIAL SQ SCH ×4 (06:32→21:43)
[2018-02-24] MEDS: glipiZIDE 5 MG TAB PO SCH ×2 (07:06→16:30)
[2018-02-24 07:07] LABS: Basophils % (A) 0 %; Eosinophils # (A) 0.2 k/uL (0-0.7); Eosinophils % (A) 3 %; HCT 46.4 % (39.0-53.0); HGB 15.9 gm/dL (13.0-17.5); Lymphocytes # (A) 1.7 k/uL (1.0-4.8); Lymphocytes % (A) 27 %; MCH 30.9 pg (25.0-35.0); MCHC 34.3 g/dL (31.0-37.0); MCV 89.9 fL (80.0-100.0); Mean Platelet Volume 7.7; Monocytes # (A) 0.4 k/uL (0-1.0); Monocytes % (A) 6 %; Neutrophils # (A) 3.8 k/uL (1.3-7.7); Neutrophils % (A) 62 %; Platelet Count 169 k/uL (150-450); RBC 5.16 m/uL (4.30-5.90); WBC 6.2 k/uL (3.8-10.6)
[2018-02-24 07:24] LABS: Anion Gap 5 mmol/L; Blood Urea Nitrogen 12 mg/dL (9-20); Calcium 8.8 mg/dL (8.4-10.2); Carbon Dioxide 24 mmol/L (22-30); Chloride 107 mmol/L (98-107); Glucose 192 mg/dL (74-99); Potassium 4.4 mmol/L (3.5-5.1); Sodium 136 mmol/L (137-145)
[2018-02-24 10:21] VITALS: BMI 31.1
[2018-02-24 11:54] LABS: Glucose,Whole Blood 152 mg/dL (75-99)
[2018-02-24] MEDS ORDERED: fentaNYL (PF) 50 MCG/ML 2 ML AMP ONE ×2 (15:29→17:41)
[2018-02-24] MEDS ORDERED: MIDAZOLAM 2 MG/2 ML VIAL ONE ×2 (15:29→17:25)
[2018-02-24] MEDS ORDERED: LIDOCAINE 1% INJ 10MG/ML (20 ML MDV) ONE ×2 (15:29→17:33)
[2018-02-24] MEDS: fentaNYL (PF) 50 MCG/ML 2 ML AMP IV ONE ×2 (15:33→16:00)
[2018-02-24] MEDS ORDERED: MIDAZOLAM 2 MG/2 ML VIAL IV ONE (15:33)
[2018-02-24] MEDS ORDERED: IV FLUID CONTINUATION 1,000 ML IV ONE ×2 (15:34→17:42)
[2018-02-24] MEDS ORDERED: LIDOCAINE 1% INJ 10MG/ML (20 ML MDV) SQ ONE (15:40)
[2018-02-24] MEDS ORDERED: TICAGRELOR 90 MG TAB ONE (15:54)
[2018-02-24] MEDS ORDERED: TICAGRELOR 90 MG TAB PO ONE (16:11)
[2018-02-24] MEDS ORDERED: IOPAMIDOL-370 125ML BTL INJ ONE ×2 (16:12→17:53)
[2018-02-24 16:42] LABS: Glucose,Whole Blood 128 mg/dL (75-99)
[2018-02-24] MEDS ORDERED: MIDAZOLAM 2 MG/2 ML VIAL IVP ONE (17:39)
[2018-02-24] MEDS ORDERED: BIVALIRUDIN BOLUS 250 MG/50 ML IV ONE (17:41)
[2018-02-24] MEDS ORDERED: BIVALIRUDIN 250 MG in SODIUM CHLORIDE 0.9% 50 ML IV ONE (17:42)
[2018-02-24] MEDS ORDERED: NITROGLYCERIN 1000MCG/10ML SYRINGE INTRACORON ONE ×2 (17:42→17:43)
[2018-02-24] MEDS ORDERED: fentaNYL (PF) 50 MCG/ML 2 ML AMP IVP ONE (17:45)
[2018-02-24] MEDS ORDERED: MAG HYDROX/AL HYDROX/SIMETH 30 ML CUP PO PRN (17:57)
[2018-02-24] MEDS ORDERED: RX INFO: IV CONTRAST WAS GIVEN 1 EACH MISC MISCELLANE PRN (17:57)
[2018-02-24] MEDS ORDERED: ZOLPIDEM 5 MG TAB PO PRN (17:57)
[2018-02-24] MEDS ORDERED: ATROPINE SULFATE 0.1 MG/ML 10ML SYRINGE IV PRN (17:57)
[2018-02-24] MEDS ORDERED: NITROGLYCERIN SL TABS 0.4 MG TAB SUBLINGUAL PRN (17:57)
[2018-02-24] MEDS ORDERED: SODIUM CHLORIDE 0.9% 1,000 ML IV SCH (18:00)
--- NOTE | 2018-02-24 18:27 | CC ---
CARDIAC CATHETERIZATION REPORT Mr. Manning has a history of a prior non-Q-wave myocardial infarction and stent to the LAD. The patient came in with intermittent chest discomfort suggestive of unstable angina syndrome. The patient had not been taking his medications regularly. The patient was advised further evaluation with cardiac catheterization for definitive diagnosis. PROCEDURE: The right groin was prepped and draped in the usual manner and the skin was infiltrated with 2% Xylocaine. The right femoral artery was entered using Seldinger technique. A #6- Spanish sheath was placed in. Selective coronary angiography was then performed in multiple projections and the left ventricular pressures were obtained. Patient tolerated the procedure well. HEMODYNAMICS: Left ventricular end-diastolic pressure was 14 mmHg prior to angiography. No gradient is noted across the aortic valve. SELECTIVE CORONARY ANGIOGRAPHY: Left main coronary artery is normal and patent. LAD is a good-caliber blood vessel and is patent at the site of prior stent placement. The mid LAD has a mild irregularity with 20% to 30% stenosis. Circumflex coronary artery is a good-caliber blood vessel. The first obtuse marginal branch is a small-caliber blood vessel and mildly diffusely diseased with 40% to 50% stenosis. Right coronary artery is a good-caliber blood vessel and the distal right coronary artery prior to bifurcation into the PLV and PDA branches has about 80% stenosis. RECOMMENDATIONS: We will review the films with Dr. Cuba and consider stent to the RCA. MMODL / IJN: [id number] /
[2018-02-24] MEDS: ATORVASTATIN 80 MG TAB PO SCH (20:14)
[2018-02-24] MEDS: TICAGRELOR 90 MG TAB PO SCH (20:15)
[2018-02-24 20:51] LABS: Glucose,Whole Blood 269 mg/dL (75-99)
--- NOTE | 2018-02-24 22:59 | P.PN ---
Subjective Progress Note Date: 02/24/18 Principal diagnosis: Chest pain/unstable angina 53-year-old male patient with history of coronary artery disease with status post stenting 3 years ago presents with evaluation of chest pain; patient has been noncompliant to his medication; he is seen and evaluated by cardiology service and is recommended cardiac catheterization tomorrow morning 02/23/2018 Patient is seen and evaluated in the room at bedside; claims he has episodes of chest pain off and on lasting about 10-15 seconds and resolved without any intervention; he is scheduled for heart catheterization tomorrow morning. 02/24/2018 Patient denied any complaints of chest pain currently. No shortness of breath. Patient is scheduled for cardiac catheterization today afternoon. Patient is being continued on telemetry monitoring. No complains of nausea vomiting or abdominal pain. 2-D echocardiogram showed normal ejection fraction and no significant valvular abnormality. All other review of systems negative except the above. Current medications reviewed Objective - Vital Signs Vital signs: Vital Signs Temp 97.3 F L 02/24/18 12:00 Pulse 62 02/24/18 12:00 Resp 16 02/24/18 12:00 BP 118/70 02/24/18 12:00 Pulse Ox 97 02/24/18 12:00 Intake & Output 02/23/18 02/24/18 02/24/18 18:59 06:59 18:59 Intake Total 990 900 630 Balance 990 900 630 Weight 90.1 kg 90.1 kg Intake: IV 900 630 0.9 900 630 Intake, IV Titration 270 Amount Sodium Chloride 0.9% 1, 270 000 ml In Empty Bag 1 bag @ 1 ML/KG/HR 89.4 mls/hr IV .[id number] ONE Rx#: [id number] Oral 720 Other: Voiding Method Toilet # Voids 1 1 2 - Exam PHYSICAL EXAMINATION: Patient is lying in the bed comfortably, no acute distress, awake alert and oriented.. HEENT: Normocephalic. Neck is supple. Pupils reactive. Nostrils clear. Oral cavity is moist. Ears reveal no drainage. Neck reveals no JVD, carotid bruits, or thyromegaly. CHEST EXAMINATION: Trachea is central. Symmetrical expansion. Lung yancey clear to auscultation and percussion. CARDIAC: Normal S1, S2 with no gallops. No murmurs ABDOMEN: Soft. Bowel sounds normal. No organomegaly. No abdominal bruits. Extremities: reveal no edema. No clubbing or cyanosis Neurologically awake, alert, oriented x3 with well-coordinated movements. No focal deficits noted Skin: No rash or skin lesions. Psychiatric: Coperative. Nonsuicidal Musculoskeletal: No joint swelling or deformity. Normal range of motion. - Labs CBC & Chem 7: 02/24/18 06:39 02/24/18 06:39 Labs: Abnormal Lab Results - Last 24 Hours (Table) 02/23/18 02/23/18 02/24/18 Range/Units 16:28 20:24 05:54 Sodium (137-145) mmol/L Glucose (74-99) mg/dL POC Glucose (mg/dL) 315 H 242 H 188 H (75-99) mg/dL 02/24/18 02/24/18 Range/Units 06:39 11:48 Sodium 136 L (137-145) mmol/L Glucose 192 H (74-99) mg/dL POC Glucose (mg/dL) 152 H (75-99) mg/dL Assessment and Plan Assessment: 1. Chest pain/unstable angina - We will continue to monitor EKG and trend troponin - 2-D echocardiogram showed normal EF. - Patient remains on aspirin, beta blockers and statins - Cardiology consultation is done and recommending cardiac catheterization for definitive diagnosis. Cardiac catheterization today. - Patient has been noncompliant with his medication and Brilinta. Started back as per cardiology. 2. Uncontrolled hypertension; restart patient on lisinopril 10 mg daily along with metoprolol 25 mg twice a day - We will continue to monitor blood pressure closely and adjust medications if needed. 3. History of coronary artery disease with stent placement to LAD in 2014 3. Hyperglycemia without acidosis/ diabetes mellitus type 2 - Patient has been very noncompliant with his medication - restarted home oral hypoglycemic medications and monitor blood sugars closely - We will use NovoLog sliding scale if needed 4. Hyperlipidemia; start patient on Lipitor 80 mg by mouth daily at bedtime 5. Vitamin D deficiency; patient will resume his home dose of vitamin D upon discharge 6. DVT prophylaxis; SCDs CODE STATUS; full code Time with Patient: Greater than 30
[2018-02-25 05:59] LABS: Glucose,Whole Blood 167 mg/dL (75-99)
--- NOTE | 2018-02-25 06:10 | PTCA ---
PERCUTANEOUSTRANS CORORONARY ANGIOGRAPHY PERCUTANEOUS CORONARY INTERVENTION DATE OF SERVICE: 02/24/2018 PERFORMING PHYSICIAN: Cristiano Cuba MD, floriculture professor. PROCEDURE PERFORMED: Successful stenting of the distal RCA using 3.0 x 15 mm Xience MOSHE which was postdilated using 3.5 mm NC balloon with good angiographic results and reduction of stenosis from 70% to 0%. INDICATION: This is a pleasant 53-year-old gentleman who has known history of coronary artery disease who had presented to the hospital with chest discomfort concerning for angina. The patient underwent a heart catheterization by Dr. Bhavani Kruger and was found to have severe disease involving the distal RCA and percutaneous coronary intervention was recommended. APPROACH: Right common femoral artery. COMPLICATION: None. LEVEL OF SEDATION: Moderate with a sedation length of 14 minutes. PROCEDURE DESCRIPTION: After diagnostic heart catheterization was performed by Dr. Bhavani Kruger and after reviewing the angiogram, we decided to pursue with an intervention on the RCA. Anticoagulation was initiated using Angiomax. Subsequently I did engage the RCA using a JR4 guiding catheter. A run-through wire was used to wire the right coronary artery. After that, I did direct stenting of the lesion using 3.0 x 15 mm Xience MOSHE where the stent was positioned under fluoroscopic guidance and deployed under 16 atmospheres for 20 seconds. Subsequently I postdilated that stent using a 3.5 mm NC balloon which was inflated under 16 atmospheres for 20 seconds. The following angiogram showed good angiographic results without perforation and without dissection with good flow in the right coronary artery. POSTPROCEDURE MANAGEMENT WILL BE: 1. Dual antiplatelet therapy. 2. Risk factors modifications. 3. Follow up with the patient. MMODL / IJN: [id number] /
[2018-02-25] MEDS: INSULIN ASPART 100 UNIT/ML 1 ML 10 ML VIAL SQ SCH ×2 (06:35→12:48)
[2018-02-25] MEDS: glipiZIDE 5 MG TAB PO SCH (06:36)
[2018-02-25] MEDS: LISINOPRIL 10 MG TAB PO SCH (08:12)
[2018-02-25] MEDS: TICAGRELOR 90 MG TAB PO SCH (08:12)
[2018-02-25] MEDS: METOPROLOL TARTRATE 25 MG TAB PO SCH (08:12)
[2018-02-25] MEDS ORDERED: ASPIRIN 81 MG PO SCH (09:00)
[2018-02-25 12:07] LABS: Glucose,Whole Blood 179 mg/dL (75-99)
[2018-02-25 12:21] VITALS: BP 144/81; PULSE 56; RESP 18; TEMP 96.7
--- NOTE | 2018-02-25 15:19 | P.PN ---
Subjective Progress Note Date: 02/25/18 This is a 53-year-old gentleman seen in consultation by Dr. VC Kruger. He has known history of coronary artery disease with prior LAD stenting. He presented to the hospital with symptoms of chest discomfort, he was taken to the cardiac catheterization lab where he underwent angioplasty and stenting of the right coronary artery. Patient was seen and examined this morning, denies any chest pain or difficulty in breathing. Hemodynamically he is stable. EKG shows normal sinus rhythm with no changes from post-PCI. Blood pressure 140/80 with a heart rate in the 50s to 60s, 97% on room air. No labs ordered today. Objective - Vital Signs Vital signs: Vital Signs Temp 96.7 F L 02/25/18 11:50 Pulse 56 L 02/25/18 11:50 Resp 18 02/25/18 11:50 BP 144/81 02/25/18 11:50 Pulse Ox 97 02/25/18 11:50 Intake & Output 02/24/18 02/25/18 02/25/18 18:59 06:59 18:59 Intake Total 813 180 Output Total 1150 Balance 813 -1150 180 Weight 90.1 kg 89.6 kg Intake: IV 813 0.9 630 Oral 180 Output: Urine 1150 Other: # Voids 2 1 # Bowel Movements 1 - Exam PHYSICAL EXAMINATION: GENERAL: 53-year-old gentleman in no acute distress at the time of my examination HEENT: Head is atraumatic, normocephalic. Pupils equal, round. Sclera anicteric. Conjunctiva are clear. Mucous membranes of the mouth are moist. Neck is supple. There is no elevated jugular venous pressure.] bruit is heard. HEART EXAMINATION: Heart S1, S2 normal. No murmur or gallop heard. CHEST EXAMINATION: Lungs are clear to auscultation and precussion. No chest wall tenderness is noted on palpation or with deep breathing. ABDOMEN: Soft, nontender. Bowel sounds are heard. No organomegaly noted. Right groin soft, no evidence of any hematoma. EXTREMITIES: 2+ peripheral pulses with no evidence of peripheral edema and no calf tenderness noted. NEUROLOGIC patient is awake, alert and oriented ?-3. . - Labs CBC & Chem 7: 02/24/18 06:39 02/25/18 05:45 Labs: Abnormal Lab Results - Last 24 Hours (Table) 02/24/18 02/24/18 02/25/18 Range/Units 16:30 20:49 05:58 POC Glucose (mg/dL) 128 H 269 H 167 H (75-99) mg/dL 02/25/18 Range/Units 12:03 POC Glucose (mg/dL) 179 H (75-99) mg/dL Assessment and Plan Plan: Assessment and plan #1 chest pain, status post angioplasty and stenting of the right coronary artery #2 known history of coronary artery disease with prior LAD stenting #3 hypertension #4 diabetes #5 hyperlipidemia Plan From cardiology's perspective, patient may be able to be discharged home today. We'll make him a follow-up appointment to see Dr. VC Kruger in the office post discharge. Discharge medications include aspirin 81 mg daily, Lipitor 80 mg daily,, lisinopril 10 mg daily, metoprolol tartrate 25 mg one tablet by mouth twice a day, to 90 mg by mouth twice a day, sublingual nitroglycerin as needed for chest pain. DNP note has been reviewed, I agree with a documented findings and plan of care. Patient was seen and examined.
== END 2018-02-25 17:10 | disposition home or self-care (01) | DRG 247 ==
LOC: EC 22:22 → 3OBS 02-22 00:04 → 6SEL 02-22 12:42 → OBSVTOIN 02-23 13:17 → 6SEL 02-25 17:34
PROVIDERS: ADMIT Hospitalist; ATTEND Hospitalist
PROC: 4A023N7 Measurement of Cardiac Sampling and Pressure, Left Heart, Percutaneous Approach (ICD-10-PCS; 2018-02-24)
PROC: B211YZZ Fluoroscopy of Multiple Coronary Arteries using Other Contrast (ICD-10-PCS; 2018-02-24)
PROC: 027034Z Dilation of Coronary Artery, One Artery with Drug-eluting Intraluminal Device, Percutaneous Approach (ICD-10-PCS; principal; 2018-02-24 15:15)
DX: I25.110 Atherosclerotic heart disease of native coronary artery with unstable angina pectoris (principal); E11.65 Type 2 diabetes mellitus with hyperglycemia; M19.91 Primary osteoarthritis, unspecified site; E78.5 Hyperlipidemia, unspecified; E55.9 Vitamin D deficiency, unspecified; I10 Essential (primary) hypertension; Z91.14 Patient's other noncompliance with medication regimen; Z79.84 Long term (current) use of oral hypoglycemic drugs; Z79.82 Long term (current) use of aspirin; Z79.899 Other long term (current) drug therapy; Z95.5 Presence of coronary angioplasty implant and graft; Z82.49 Family history of ischemic heart disease and other diseases of the circulatory system; Z83.3 Family history of diabetes mellitus; Z80.52 Family history of malignant neoplasm of bladder
CPT/HCPCS: 36415; 71046; 80048; 80053; 82550; 82553; 82565; 83036; 83735; 83880; 84484; 85025; 85610; 85730; 93306; 99285

== ENCOUNTER 2020-01-28 10:19 | Day surgery (SDC) | payer MEDICAID ==
[2020-01-26 14:36] VITALS: BMI 31.8
[~2020-01-28 10:19] MED LIST: ACETAMINOPHEN TAB 500 MG TAB PO ONE; DEXAMETHASONE SOD PHOSPHATE 10 MG/ML 1 ML VIAL IV ONE; HYDROmorphone 0.5 MG/0.5 ML SYRINGE IVP PRN; LACTATED RINGERS 1,000 ML IV SCH; MIDAZOLAM 2 MG/2 ML VIAL IV PRN; ONDANSETRON 4 MG/2 ML VIAL IVP ONE; Pre Op ABX Message 1 EACH MISC MISCELLANE ONE
[2020-01-28] MEDS ORDERED: ACETAMINOPHEN TAB 500 MG TAB ONE (10:42)
[2020-01-28] MEDS ORDERED: ONDANSETRON 4 MG/2 ML VIAL ONE ×2 (10:42→12:58)
[2020-01-28 10:58] LABS: Glucose,Whole Blood 180 mg/dL (75-99)
[2020-01-28] MEDS ORDERED: MIDAZOLAM 2 MG/2 ML VIAL IVP ONE (11:05)
[2020-01-28] MEDS ORDERED: fentaNYL (PF) 50 MCG/ML 2 ML AMP IVP ONE (11:06)
--- NOTE | 2020-01-28 11:15 | P.ANPRN ---
Procedure Note - Anesthesia - Nerve Block Performed Right Interscalene Single Time Out Performed: Yes Date of Procedure: 01/28/20 Procedure Start Time: 11:04 Procedure Stop Time: 11:11 Location of Patient: PreOp Indication: Acute Post-Operative Pain, Requested by Surgeon Sedation Type: Sedate with meaningful contact maintained Preparation: Sterile Prep, Sterile Dressing Position: Supine Catheter: None Needle Types: Pajunk Needle Gauge: 21 Ultrasound used to visualize needle placement: Yes Ultrasound used to observe medication spread: Yes Injectate: 0.5% Ropivacaine (see comment for volume) (20 ml + decadron 4 mg)
[2020-01-28] MEDS ORDERED: SUCCINYLCHOLINE CHLORIDE 100 MG/5 ML SYR IV ONE (11:25)
[2020-01-28] MEDS ORDERED: MIDAZOLAM 2 MG/2 ML VIAL ONE (11:25)
[2020-01-28] MEDS ORDERED: GLYCOPYRROLATE 0.2 MG/ML 2 ML VIAL ONE (11:25)
[2020-01-28] MEDS ORDERED: LIDOCAINE 1% INJ 10MG/ML (20 ML MDV) ONE (11:25)
[2020-01-28] MEDS ORDERED: ROPIVACAINE 5 MG/ML 30 ML VIAL ONE (11:25)
[2020-01-28] MEDS ORDERED: DEXAMETHASONE SOD PHOSPHATE 4 MG/ML 1 ML VIAL ONE (11:25)
[2020-01-28] MEDS ORDERED: ROCURONIUM BROMIDE 10 MG/ML 5 ML VIAL IV ONE (11:25)
[2020-01-28] MEDS ORDERED: NEOSTIGMINE 1 MG/ML 10 ML VIAL ONE (11:25)
[2020-01-28] MEDS ORDERED: PHENYLEPHRINE-0.9% NACL SYG 1 MG/10 ML SYRINGE ONE (11:25)
[2020-01-28] MEDS ORDERED: ePHEDrine SULFATE/0.9% NACL/PF 50 MG/5 ML SYRINGE IV ONE (11:25)
[2020-01-28] MEDS ORDERED: fentaNYL (PF) 50 MCG/ML 2 ML AMP ONE (11:25)
[2020-01-28] MEDS ORDERED: PROPOFOL 10 MG/ML 20 ML VIAL IV ONE (11:25)
[2020-01-28 12:59] VITALS: TEMP 96.8
[2020-01-28 13:04] VITALS: RESP 16
[2020-01-28 14:08] VITALS: BP 98/50; PULSE 47
--- NOTE | 2020-01-28 20:42 | OP ---
OPERATIVE REPORT DATE OF PROCEDURE: 01/28/2020 SURGEON: Davey Lopez MD. WHITE SHOE RAGGER: Juanpablo Mathew PA-C. PREOPERATIVE DIAGNOSES: 1. Right shoulder full-thickness rotator cuff tear. 2. Right shoulder medial subluxation long head of the biceps tendon. 3. Right shoulder superior labral tear. POSTOPERATIVE DIAGNOSES: 1. Right shoulder full-thickness tear of the supraspinatus, a 2 x 2 cm tear. 2. Right shoulder type 2 superior labral tear. 3. Right shoulder partial tearing of the intra-articular long head of the biceps tendon with medial subluxation out of the bicipital groove. 4. Right shoulder type 2 anterolateral acromial spur. PROCEDURES PERFORMED: 1. Right shoulder arthroscopic rotator cuff repair, 2 x 2 cm tear of the supraspinatus. 2. Right shoulder arthroscopic acromioplasty. 3. Right shoulder arthroscopic biceps tenotomy. 4. Right shoulder arthroscopic anterior, superior and posterior labral debridement. ANESTHESIA: General endotracheal. ESTIMATED BLOOD LOSS: Minimal. TOURNIQUETS: None. DRAINS: None. COMPLICATIONS: None apparent. DISPOSITION: Post-Anesthesia Care Unit. EXAMINATION UNDER ANESTHESIA OF THE RIGHT SHOULDER: Elevation 160 degrees. External rotation at the side 60 degrees. External rotation at 90 degrees abduction was to 90 degrees. Internal rotation at 90 degrees abduction was to 70 degrees. Sulcus less than 1 cm. Anterior translation glenoid face. Posterior translation glenoid face. ARTHROSCOPIC FINDINGS, RIGHT SHOULDER: 1. Superior labrum, type 2 superior labral tear tearing both anterior and posterior to the biceps anchor. The biceps anchor was not intact. There was also fairly high- grade partial tearing of the intra-articular portion of long head of the biceps tendon and medial subluxation out of the bicipital groove. 2. Anterior inferior labrum fraying but a normal glenoid labral attachment. 3. Tearing of the posterior labrum from the 10 o'clock position to the 12 o'clock position on the glenoid face. 4. Humeral head cartilage was normal. 5. Rotator cuff full-thickness tear of the supraspinatus measuring 2 x 2 cm tear. There was some fraying of the superior rolled border of the subscapularis, but an intact attachment to the lesser tuberosity. 6. Glenoid face cartilage was normal. 7. Subacromial space significant fraying of the undersurface of the coracoacromial ligament with a type 2 anterolateral acromial spur. INDICATIONS: Manish is a very pleasant 55-year-old male with right shoulder pain. He sustained an injury to the shoulder. He has noted weakness as well as significant pain in the shoulder. He has been through a fairly significant course of nonoperative treatment at this point. Physical examination and MRI reveal tearing of the superior labrum as well as a full-thickness rotator cuff tear and medial subluxation of the long head of the biceps tendon. At this point in time he feels that he has failed nonoperative treatment and elected to proceed with operative intervention. Long discussion was held with the patient regarding treatment options. The risks of procedure were all discussed with him in detail. These risks included but were not limited to risk of infection, nerve damage, bleeding, pain, and a small risk of deep vein thrombosis which could lead to fatal pulmonary embolism. Further risks include lack of healing of the rotator cuff and the possibility for biceps contour change with the biceps tenotomy. The patient understands the operation as well as the fact that there is no guarantee of improvement of his symptoms. Appropriate informed consent was obtained. DESCRIPTION OF PROCEDURE: Patient was identified in the preoperative holding area. Surgical site was marked by both the patient and myself. He was given 2 grams of Ancef IV for prophylactic purposes. He was then transported to the operative suite. He was placed supine on the operating room table. The patient was then intubated endotracheally and received general anesthesia throughout the operative procedure. Examination under anesthesia was then performed, and the findings are as noted above. The patient was then placed into the beach chair position and well padded in preparation for surgery. Great care was taken to ensure that the cervical spine was in neutral alignment, well padded, and maintained that way throughout the operative procedure. Great care was also taken to ensure that his legs were appropriately padded as well. The patient's right upper extremity than prepped and draped in the usual sterile fashion. A standard surgical pause was then undertaken to ensure that appropriate preoperative antibiotics had been given and that we were operating on the correct site. All staff in room were in agreement and we proceeded. The acromion as well as the AC joint and coracoid were marked with a surgical pen. The skin at the anticipated portal sites were also marked with a surgical pen. The skin of the anticipated port sites was then injected with 0.25% Marcaine with epinephrine. I then proceed to make the posterior portal. A 30-degree arthroscope was introduced into the glenohumeral joint through this portal. The arthroscopic pump pressure was set to 40 mmHg and maintained at that level throughout the entire case. Next, utilizing an 18-gauge spinal needle to topically localize the placement, the anterior superior portal was made. This was made just underneath the biceps tendon and high in the rotator interval. A small 5.75 mm cannula was then placed and the outflow was then done through this cannula. Diagnostic arthroscopy of the shoulder was then performed. The findings were as noted above. Great care was taken to probe the superior labral complex as well as the biceps anchor. The biceps anchor was not firmly attached. He had significant tearing of the superior labrum. This extended both anterior and posterior to the biceps anchor. The intra- articular portion of the long head of the biceps tendon did have partial tearing as well. It was also medially subluxated out of the bicipital groove. At this point I proceeded with a biceps tenotomy. The biceps was tenotomized near its attachment onto the supraglenoid tubercle. This was done utilizing the ArthroCare wand. I then proceeded to debride the torn loose tissue of the superior labrum. This was debrided anteriorly, superiorly and posteriorly back to stable tissue. I then inspected the rotator cuff from intra-articular. He did have a large full- thickness tear of the supraspinatus. The tear was debrided very gently from intra- articular utilizing the synovial shaver. At this point time no further work was deemed necessary from intra-articular. The arthroscope was removed from the glenohumeral joint, and utilizing the same posterior skin incision, it was placed in the subacromial space. Next, utilizing the 18-gauge spinal needle to topically localize the placement, a lateral portal was made under direct visualization. Subacromial bursectomy was then performed utilizing the synovial shaver as well as the ArthroCare wand. There was significant fraying of the undersurface of the coracoacromial ligament. This was then taken down utilizing the ArthroCare wand. This exposed an underlying type 2 anterolateral acromial spur. I then proceeded with an acromioplasty. Utilizing the synovial shaver in a sneha-type fashion, the acromioplasty was completed. When the acromioplasty was complete, the arthroscope was placed in the lateral portal and the shaver placed posteriorly to ensure that it was adequate and coplanar with the posterior aspect of the acromion. I then proceeded to repair the rotator cuff tear. He had a full-thickness tear of the supraspinatus. It measured approximately 2 x 2 cm. A fourth portal was then made off the anterolateral angle of the acromion. Again, this was done after first localizing it with an 18-gauge spinal needle. The footprint of the greater tuberosity was then debrided of all devitalized tissue utilizing the synovial shaver as well as the ArthroCare wand. I then performed a light decortication of the greater tuberosity utilizing the synovial shaver in a sneha-type fashion. This provided a nice bleeding surface for the repair. I then placed small microfracture holes along the articular margin to again enhance the healing of the repair. I then utilized the Photos to Photos suture-passer to place an Arthrex FiberTape suture in an inverted horizontal mattress fashion. This was placed in the posterior half of the tear. These sutures were shuttled out through the posterior portal. I then placed a second Arthrex FiberTape suture in an inverted horizontal mattress fashion in the anterior half of the tear. These sutures were shuttled out through the anterior portal. I then proceeded with placement of the posterior anchor. The awl was placed in the most posterolateral aspect of the footprint. The posterior sutures were then shuttled through a 4.75 mm Bio-SwiveLock anchor. The anchor was then placed after tensioning the sutures appropriately. The anchor had excellent purchase in bone. This brought the posterior half of the tear down very nicely to the most posterolateral aspect of the footprint. I then brought the anterior sutures out through the anterolateral portal. The awl was then placed in the most anterolateral aspect of the footprint. This was just posterior to the bicipital groove. Again the sutures were shuttled through an Arthrex 4.75 mm Bio-SwiveLock anchor. The anchor was then placed after tensioning the sutures appropriately. This anchor also had an excellent purchase in bone. This brought the anterior half of the tear down very nicely to the most anterolateral aspect of the footprint. The FiberTape sutures were then cut flush with the anchor. At this point, the repair was probed. The shoulder was taken through a full range of motion. There were no residual defects the rotator cuff. The repair was very solid. The rotator cuff was repaired very nicely down to the most lateral aspect of the footprint. At this point time no further work was deemed necessary. The shoulder was thoroughly irrigated and then drained with an outflow cannula. The arthroscopic equipment was removed from the shoulder. The arthroscopic portals were then closed with 3-0 nylon interrupted suture. Sterile compressive dressings were then applied. The patient's right upper extremity was placed into a slingshot type rotator cuff immobilizer. All sponge and needle counts were deemed correct prior to closure. The patient tolerated the procedure without apparent complication. He was transferred to the recovery room in stable condition. MMODL / RAMIRON: [id number] /
== END 2020-01-28 14:55 | disposition home or self-care (01) ==
LOC: OR 10:19
PROVIDERS: ATTEND Orthopaedic Surgery Sports Medicine
DX: S46.011A Strain of muscle(s) and tendon(s) of the rotator cuff of right shoulder, initial encounter (principal); S46.111A Strain of muscle, fascia and tendon of long head of biceps, right arm, initial encounter; S43.431A Superior glenoid labrum lesion of right shoulder, initial encounter; S46.292A Other injury of muscle, fascia and tendon of other parts of biceps, left arm, initial encounter; X50.0XXA Overexertion from strenuous movement or load, initial encounter; M75.91 Shoulder lesion, unspecified, right shoulder; I25.10 Atherosclerotic heart disease of native coronary artery without angina pectoris; I10 Essential (primary) hypertension; E10.9 Type 1 diabetes mellitus without complications; E78.5 Hyperlipidemia, unspecified; Z79.84 Long term (current) use of oral hypoglycemic drugs; Z79.899 Other long term (current) drug therapy; Z98.890 Other specified postprocedural states; Z95.5 Presence of coronary angioplasty implant and graft; Z88.8 Allergy status to other drugs, medicaments and biological substances; Z82.49 Family history of ischemic heart disease and other diseases of the circulatory system; Z83.3 Family history of diabetes mellitus
CPT/HCPCS: 64415; 76942; 29827; 29826; C1713 ×3; J2250; J1100 ×2; J2710; J0690; J2405; J2001; J3010; J2795; J2370; J0330; J2704

== ENCOUNTER 2021-01-29 23:29 | Observation (INO) | payer MEDICAID ==
[2021-01-29 23:36] VITALS: TEMP 97.8
--- NOTE | 2021-01-30 00:47 | XR ---
EXAMINATION TYPE: XR chest 2V DATE OF EXAM: 01/30/2021 COMPARISON: 02/22/2020 HISTORY: Chest pain TECHNIQUE: 2 views FINDINGS: Heart and mediastinum are normal. Lungs are clear. Diaphragm is normal. Bony thorax appears normal. IMPRESSION: Normal chest. Normal heart. No change.
[2021-01-30 00:48] LABS: Basophils % (A) 0 %; Eosinophils # (A) 0.2 k/uL (0-0.7); Eosinophils % (A) 3 %; HCT 44.5 % (39.0-53.0); HGB 16.2 gm/dL (13.0-17.5); Lymphocytes # (A) 1.8 k/uL (1.0-4.8); Lymphocytes % (A) 28 %; MCH 33.2 pg (25.0-35.0); MCHC 36.4 g/dL (31.0-37.0); MCV 91.1 fL (80.0-100.0); Mean Platelet Volume 7.9; Monocytes # (A) 0.4 k/uL (0-1.0); Monocytes % (A) 7 %; Neutrophils # (A) 3.7 k/uL (1.3-7.7); Neutrophils % (A) 60 %; Platelet Count 176 k/uL (150-450); RBC 4.89 m/uL (4.30-5.90); RDW 12.4 % (11.5-15.5); WBC 6.3 k/uL (3.8-10.6)
--- NOTE | 2021-01-30 00:51 | ED ---
Chest Pain HPI - General Chief Complaint: Chest Pain Stated Complaint: Chest Pain Time Seen by Provider: 01/30/21 00:01 Source: patient, RN notes reviewed, old records reviewed Mode of arrival: ambulatory Limitations: no limitations - History of Present Illness Initial Comments: This is a 56-year-old male DF for evaluation. Patient has history of stent placement CAD with chest pain that feels a prior time breathing as needed a stent placed. He states on the left and right. No significant shortness of breath or diaphoresis. Patient was blunted but has been taken off. Not currently and a blood thinners. No fevers cough or congestion. No recent cardiac evaluation MD Complaint: chest pain -: hour(s) Onset: during rest, during exertion Pain Location: substernal, left chest Pain Radiation: back Severity: moderate Severity scale (1-10): 4 Quality: tightness, heaviness Consistency: intermittent Improves With: nothing Worsens With: nothing Anginal Symptoms: dyspnea Other Symptoms: palpitations Treatments Prior to Arrival: none - Related Data Home Medications Medication Instructions Recorded Confirmed glipiZIDE XL [Glucotrol XL] 10 mg PO BID-W/MEALS 03/16/15 01/28/20 Alogliptin Benzoate [Alogliptin] 25 mg PO DAILY 01/26/20 01/28/20 Previous Rx's Medication Instructions Recorded Metoprolol Tartrate [Lopressor] 25 mg PO BID #60 tab 03/17/15 Atorvastatin [Lipitor] 80 mg PO HS #30 tab 02/25/18 Ticagrelor [Brilinta] 90 mg PO BID #60 tab 02/25/18 lisinopriL [Zestril] 10 mg PO DAILY #30 tab 02/27/18 Doxycycline Hyclate 100 mg PO BID #10 tab 01/28/20 HYDROcodone/APAP 7.5-325MG [Conde 1 - 2 each PO Q6HR PRN #30 tab 01/28/20 7.5-325] Allergies Allergy/AdvReac Type Severity Reaction Status Date / Time No Known Allergies Allergy Verified 01/29/21 23:36 Review of Systems ROS Statement: Those systems with pertinent positive or pertinent negative responses have been documented in the HPI. ROS Other: All systems not noted in ROS Statement are negative. EKG Findings - EKG Comments: EKG Findings:: EKG is sinus rhythm 75 OK 156 QRS 82 QTC 424 Past Medical History Past Medical History: Coronary Artery Disease (CAD), Chest Pain / Angina, Diabetes Mellitus, Hyperlipidemia, Hypertension, Osteoarthritis (OA) History of Any Multi-Drug Resistant Organisms: None Reported Past Surgical History: Heart Catheterization With Stent, Hernia Repair, Orthopedic Surgery Additional Past Surgical History / Comment(s): RT knee SX, stent to LAD in 03/2015(RT GROIN SITE WAS USED) Past Anesthesia/Blood Transfusion Reactions: No Reported Reaction Date of Last Stent Placement:: 03/2015 Past Psychological History: No Psychological Hx Reported Smoking Status: Never smoker Past Alcohol Use History: None Reported Past Drug Use History: None Reported - Past Family History Father History Unknown: Yes Family Medical History: Diabetes Mellitus, Hypertension Mother History Unknown: Yes Family Medical History: Cancer Additional Family Medical History / Comment(s): bladder General Exam Limitations: no limitations General appearance: alert, in no apparent distress Head exam: Present: atraumatic, normocephalic, normal inspection Eye exam: Present: normal appearance, PERRL, EOMI. Absent: scleral icterus, c onjunctival injection, periorbital swelling ENT exam: Present: normal exam, mucous membranes moist Neck exam: Present: normal inspection. Absent: tenderness, meningismus, lymphadenopathy Respiratory exam: Present: normal lung sounds bilaterally. Absent: respiratory distress, wheezes, rales, rhonchi, stridor Cardiovascular Exam: Present: regular rate, normal rhythm, normal heart sounds. Absent: systolic murmur, diastolic murmur, rubs, gallop, clicks GI/Abdominal exam: Present: soft, normal bowel sounds. Absent: distended, tenderness, guarding, rebound, rigid Extremities exam: Present: normal inspection, full ROM, normal capillary refill. Absent: tenderness, pedal edema, joint swelling, calf tenderness Back exam: Present: normal inspection Neurological exam: Present: alert, oriented X3, CN II-XII intact Psychiatric exam: Present: normal affect, normal mood Skin exam: Present: warm, dry, intact, normal color. Absent: rash Course Vital Signs 01/29/21 23:33 Temperature 97.8 F Pulse Rate 77 Respiratory 20 Rate Blood Pressure 202/91 O2 Sat by Pulse 98 Oximetry - Reevaluation(s) Reevaluation #1: 01/30/21 02:11 Medical record is reviewed Reevaluation #2: 01/30/21 02:11 Patient does have persistent chest pain here in the ER Reevaluation #3: 01/30/21 02:12 Patient informed of results and questions answered Chest Pain MDM - MDM 56 male to the ER for evaluation of chest pain. Patient will be admitted for chest pain observation cardiology to evaluate and treat Critical Care Time Critical Care Time: Yes Total Critical Care Time: 31 Disposition Clinical Impression: Chest pain, Unstable angina pectoris Disposition: ADMITTED IP TO THIS HOSP Condition: Undetermined Instructions (If sedation given, give patient instructions): Chest Pain (ED) Is patient prescribed a controlled substance at d/c from ED?: No Referrals: Prabhakar Osborne DO [Primary Care Provider] - 1-2 days
[2021-01-30 00:56] LABS: Prothrombin Time 10.5 sec (9.0-12.0)
[2021-01-30 01:09] LABS: ALT 22 U/L (4-49); AST 27 U/L (17-59); African American GFR (CKD) >90 (>60 ml/min/1.73 sqM); Albumin 4.4 g/dL (3.5-5.0); Alkaline Phosphatase 70 U/L (38-126); Anion Gap 8 mmol/L; Blood Urea Nitrogen 20 mg/dL (9-20); Calcium 9.7 mg/dL (8.4-10.2); Carbon Dioxide 29 mmol/L (22-30); Chloride 103 mmol/L (98-107); Glucose 225 mg/dL (74-99); Lipase 111 U/L (23-300); Magnesium 1.9 mg/dL (1.6-2.3); Non-African American GFR(CKD) >90 (>60 ml/min/1.73 sqM); Potassium 3.9 mmol/L (3.5-5.1); Sodium 140 mmol/L (137-145); Total Bilirubin 0.3 mg/dL (0.2-1.3); Total Protein 6.9 g/dL (6.3-8.2)
[2021-01-30] MEDS ORDERED: ASPIRIN 81 MG PO STA (02:02)
[2021-01-30] MEDS ORDERED: HEPARIN SODIUM 1,000 UN/ML (10ML VL) IV ONE (02:02)
[2021-01-30] MEDS ORDERED: NITROGLYCERIN SL TABS 0.4 MG TAB SUBLINGUAL PRN (02:02)
[2021-01-30] MEDS ORDERED: MORPHINE SULFATE 4 MG/ML SYRINGE IV PRN (02:02)
[2021-01-30] MEDS ORDERED: SODIUM CHLORIDE 0.9% 1,000 ML IV SCH (02:15)
[2021-01-30] MEDS ORDERED: HEPARIN SOD,PORK IN 0.45% NACL 25,000 UNIT in 0.45% NACL 1 250ML.BAG IV SCH (02:15)
[2021-01-30] MEDS ORDERED: ATORVASTATIN 80 MG TAB PO STA (09:14)
[2021-01-30] MEDS ORDERED: LIDOCAINE 1% INJ 10MG/ML (20 ML MDV) ONE (09:27)
[2021-01-30] MEDS ORDERED: fentaNYL (PF) 50 MCG/ML 2 ML AMP IVP ONE (09:32)
[2021-01-30] MEDS ORDERED: MIDAZOLAM 2 MG/2 ML VIAL IVP ONE (09:32)
[2021-01-30] MEDS ORDERED: IV FLUID CONTINUATION 1,000 ML IV ONE (09:32)
[2021-01-30] MEDS ORDERED: fentaNYL (PF) 50 MCG/ML 2 ML AMP ONE (09:33)
[2021-01-30] MEDS ORDERED: LIDOCAINE 1% INJ 10MG/ML (20 ML MDV) SQ ONE (09:35)
[2021-01-30] MEDS ORDERED: METOPROLOL SUCCINATE (ER) 25 MG TAB.ER.24H PO SCH (09:45)
[2021-01-30] MEDS ORDERED: IOPAMIDOL-370 125ML BTL INJ ONE (09:48)
[2021-01-30] MEDS ORDERED: ATORVASTATIN 40 MG TAB PO SCH (10:00)
[2021-01-30] MEDS ORDERED: RX INFO: IV CONTRAST WAS GIVEN 1 EACH MISC MISCELLANE PRN (10:19)
--- NOTE | 2021-01-30 11:14 | CONS ---
CONSULTATION CHIEF COMPLAINT: Chest pain. HISTORY OF PRESENT ILLNESS: Manish is a 56-year-old gentleman with history of coronary artery disease, status post prior angioplasty of right coronary artery, who presented to the hospital complaining of chest pain. He describes it as sharp intermittent episodes of precordial chest pressure. There is no definite radiation to neck, arm or back. It is sometimes associated with shortness of breath. At the time of my evaluation, he is pain free, but states that he has had an episode of chest discomfort earlier in the morning. There is no history of PND or orthopnea. There is no history of leg edema. Three sets of cardiac enzymes have been negative. Potassium is 3.9, creatinine is 0.86, hemoglobin is 16.2. EKG does not reveal acute ischemic changes. The patient's clinical presentation is consistent with a diagnosis of unstable angina and I advised him to undergo cardiac catheterization for further evaluation. He has been explained of risks, benefits and alternatives. PAST MEDICAL HISTORY: Significant for coronary artery disease status post angioplasty, diabetes, hypertension, dyslipidemia. MEDICATIONS: None. ALLERGIES: None. FAMILY HISTORY: Negative for premature coronary artery disease. SOCIAL HISTORY: Negative for current smoking, EtOH abuse, or drug abuse REVIEW OF SYMPTOMS: HEENT: Is unremarkable. CARDIAC: As described above. RESPIRATORY: Negative. GI: Negative. : Negative. ALLERGY/IMMUNOLOGY: Negative. SKIN: Negative. MUSCULOSKELETAL: Negative. PSYCHOSOCIAL: Negative. ENDOCRINE: Negative. DERM: Negative. CONSTITUTIONAL: Negative. ONCOLOGICAL: Negative. BUSINESS SUPPORT LIAISON: Negative. The rest of the system review is not relevant. PHYSICAL EXAM: Comfortable at rest. Vital signs are stable. There is no jugular venous distention. Carotid upstroke is normal. There is no bruit. Chest exam reveals good air entry bilaterally. Heart exam reveals first and second heart sounds. No gallop. No murmur. No rub. Abdomen is soft, nontender. Examination of extremities did not reveal any edema. Peripheral pulses are felt. BUSINESS SUPPORT LIAISON exam did not reveal focal neurological deficits. LABORATORY DATA: As described above. EKG is as described above. ASSESSMENT: Unstable angina. PLAN: I advised the patient to undergo cardiac catheterization for further evaluation. MMODL / IJN: [id number] /
--- NOTE | 2021-01-30 14:25 | CC ---
CARDIAC CATHETERIZATION REPORT INDICATION: Unstable angina. PROCEDURE NOTE: After obtaining informed consent, left heart catheterization and coronary angiogram were performed via the right femoral artery using standard Eric catheters. The patient tolerated the procedure well without any obvious immediate complications. A femoral angiogram was performed and Angio-Seal will be deployed for hemostasis. FINDINGS: HEMODYNAMICS: Left ventricular end-diastolic pressure is 14 mm. There is no significant gradient across the aortic valve. LEFT VENTRICULOGRAM: Not performed. ANGIOGRAPHIC DATA: LEFT MAIN CORONARY ARTERY: Left main coronary artery is a normal-sized vessel and is free of stenosis. Divides into left anterior descending coronary artery and circumflex coronary artery. LEFT ANTERIOR DESCENDING CORONARY ARTERY: Left anterior descending coronary artery was previously stented in the proximal segment. The stent appears patent. There is a 30- 40 percent lesion in distal to the stent. CIRCUMFLEX CORONARY ARTERY: The circumflex coronary artery gives off small caliber OM branches that show mild diffuse disease. RIGHT CORONARY ARTERY: Right coronary artery is a large dominant vessel and the previously stented segment appears patent. CONCLUSIONS: Patent stents within the LAD and right coronary artery. PLAN: I reviewed angiographic data with the patient and advised him on optimal medical therapy. I will obtain a 2D echo and will continue with the aggressive medical therapy. Patient is currently not taking any medications. MMODL / IJN: [id number] /
[2021-01-30 16:50] VITALS: BP 134/83; PULSE 62; RESP 16
--- NOTE | 2021-01-30 17:38 | HP ---
HISTORY AND PHYSICAL HISTORY AND PHYSICAL/DISCHARGE SUMMARY: CHIEF COMPLAINT: Chest pain. HISTORY OF PRESENT ILLNESS: This 56-year-old gentleman with a past medical history of multiple medical problems including CAD/stent, history of diabetes, hypertension, hyperlipidemia, being followed by Dr. Osborne in the outpatient setting was complaining of chest pain. The pain is mostly in the left side left shoulder also radiating to the left arm. Myocardial infarction ruled. Dr. Prince performed cardiac catheterization. The cardiac cath showed patent stents within the LAD and right coronary artery. Medical treatment was recommended. There is no history of fever, rigors, no history of headache, loss of consciousness, seizures at this time. PAST MEDICAL HISTORY: CAD stent, history of diabetes, hypertension, hyperlipidemia, and DJD. MEDICATIONS: Home medications are: Toprol-XL 25 mg. Lipitor 40 mg. Aspirin 81 mg daily. ALLERGIES: None. FAMILY HISTORY: History of diabetes, hypertension, bladder problems in the family. SOCIAL HISTORY: No history of smoking. No history of alcohol. REVIEW OF SYSTEMS: ENT: No diminished vision. No diminished hearing. CARDIOVASCULAR system: As mentioned earlier. GI: No nausea or vomiting. : No dysuria or retention. NERVOUS SYSTEM: No numbness, weakness. ALLERGY/IMMUNOLOGY: No asthma or hayfever. MUSCULOSKELETAL as mentioned earlier. HEMATOLOGY/ONCOLOGY: No history of anemia. ENDOCRINE: No history of diabetes. CONSTITUTIONAL: As mentioned earlier. DERMATOLOGY: Negative. RHEUMATOLOGY: Negative. PSYCHIATRIC: As mentioned earlier. PHYSICAL EXAMINATION: Alert and oriented times three. Pulse 68, blood pressure 140/85, respiration 18, temperature 97.8, pulse ox 98% on room air. HEENT: Conjunctivae normal. Oral mucosa moist. NECK is no jugular venous distention. No carotid bruit. No lymph node enlargement. CARDIOVASCULAR system: S1, S2. No S3, no S4. RESPIRATION: Breath sounds diminished in the bases. No rhonchi. No crackles. ABDOMEN: Soft, nontender. No mass palpable. LEGS: No edema. No swelling. NERVOUS SYSTEM: Higher functions as mentioned earlier. Moves all 4 limbs. LYMPHATICS: No lymph nodes palpable in the neck, axillae or groin. SKIN: No ulcer, no rash and no bleeding. JOINTS: No active deforming arthropathy. LABS: CBC within normal limits. Glucose 225. Other labs are noted. ASSESSMENT: 1. Chest pain possible unstable angina, status post cardiac catheterization showing patent stents. 2. History of coronary artery disease/stent. 3. Diabetes mellitus type 2. 4. Hypertension. 5. Hyperlipidemia. 6. History of degenerative joint disease. 7. FULL CODE. RECOMMENDATIONS AND DISCUSSION: This 56-year-old gentleman who presented with multiple complex medical medical issues, at this time, recommend to continue the current medications, management and symptomatic treatment. The patient will be discharged. We will also check a D-dimer and once it is normal, the patient will be discharged with the following advice and medications: 1. Diet is cardiac diet. 2. Activity limited until follow up. 3. Follow up with Dr. Osborne in 1-2 days. 4. Follow up with Dr. Rebekah Prince as mentioned earlier. DISCHARGE MEDICATIONS: 1. Aspirin 81 mg daily. 2. Lipitor 40 mg daily. 3. Toprol-XL 25 mg p.o. daily. MMJOSUÉL / RAMIRON: [id number] /
[2021-01-31] MEDS ORDERED: ATORVASTATIN 40 MG TAB PO SCH (09:00)
[2021-01-31] MEDS ORDERED: ASPIRIN 325 MG TAB PO SCH (09:00)
[2021-01-31] MEDS ORDERED: ASPIRIN 81 MG PO SCH (09:00)
== END 2021-01-30 17:04 | disposition home or self-care (01) ==
LOC: EC 23:29 → 6NMEDSUR 01-30 02:03 → 1SOBS 01-30 16:05
PROVIDERS: ADMIT Hospitalist; ATTEND Hospitalist
DX: I25.110 Atherosclerotic heart disease of native coronary artery with unstable angina pectoris (principal); E11.9 Type 2 diabetes mellitus without complications; I10 Essential (primary) hypertension; E78.5 Hyperlipidemia, unspecified; M19.90 Unspecified osteoarthritis, unspecified site; Z79.84 Long term (current) use of oral hypoglycemic drugs; Z79.899 Other long term (current) drug therapy; Z79.02 Long term (current) use of antithrombotics/antiplatelets; Z95.5 Presence of coronary angioplasty implant and graft; Z83.3 Family history of diabetes mellitus; Z82.49 Family history of ischemic heart disease and other diseases of the circulatory system; Z80.0 Family history of malignant neoplasm of digestive organs
CPT/HCPCS: 93458; 36415; 93005 ×2; 83880; 80053; 83690; 83735; 84484; 85025; 85610; 85730; 71046; G0378; C1769 ×2; C1760; C1894; J2250; J2001; J3010; J1644 ×2; Q9967

== ENCOUNTER 2022-07-31 18:26 | Observation (INO) | payer MEDICAID ==
--- NOTE | 2022-07-31 19:00 | XR ---
EXAMINATION TYPE: XR chest 2V DATE OF EXAM: 07/31/2022 COMPARISON: 01/30/2021 HISTORY: Chest pain TECHNIQUE: FINDINGS: Heart and mediastinum are normal. Lungs are clear. Diaphragm is normal. Bony thorax is inta ct. No pleural effusion. IMPRESSION: Normal chest. No change.
[2022-07-31 19:36] LABS: Basophils % (A) 1 %; Eosinophils # (A) 0.1 k/uL (0-0.7); Eosinophils % (A) 1 %; HCT 46.4 % (39.0-53.0); HGB 16.1 gm/dL (13.0-17.5); Lymphocytes # (A) 1.4 k/uL (1.0-4.8); Lymphocytes % (A) 18 %; MCH 31.6 pg (25.0-35.0); MCHC 34.7 g/dL (31.0-37.0); MCV 91.1 fL (80.0-100.0); Mean Platelet Volume 8.2; Monocytes # (A) 0.4 k/uL (0-1.0); Monocytes % (A) 6 %; Neutrophils # (A) 5.9 k/uL (1.3-7.7); Neutrophils % (A) 73 %; Platelet Count 182 k/uL (150-450); WBC 8.1 k/uL (3.8-10.6)
[2022-07-31 19:50] LABS: INR 1.1 (<1.2); Partial Thromboplastin Time 27.6 sec (22.0-30.0); Prothrombin Time 11.6 sec (9.0-12.0)
[2022-07-31 19:54] LABS: ALT 38 U/L (4-49); AST 27 U/L (17-59); African American GFR (CKD) >90 (>60 ml/min/1.73 sqM); Albumin 4.6 g/dL (3.5-5.0); Alkaline Phosphatase 60 U/L (38-126); Anion Gap 7 mmol/L; Blood Urea Nitrogen 18 mg/dL (9-20); Calcium 9.5 mg/dL (8.4-10.2); Carbon Dioxide 29 mmol/L (22-30); Chloride 101 mmol/L (98-107); Glucose 233 mg/dL (74-99); Magnesium 1.9 mg/dL (1.6-2.3); Non-African American GFR(CKD) >90 (>60 ml/min/1.73 sqM); Potassium 4.4 mmol/L (3.5-5.1); Sodium 137 mmol/L (137-145); Total Bilirubin 0.7 mg/dL (0.2-1.3); Total Protein 7.6 g/dL (6.3-8.2)
--- NOTE | 2022-07-31 20:22 | ED ---
Chest Pain HPI - General Source: patient, family Mode of arrival: ambulatory Limitations: no limitations <Thalia Vegas - Last Filed: 07/31/22 20:20> - General Source: RN notes reviewed, old records reviewed <Luisito Steve - Last Filed: 08/01/22 01:25> - General Chief Complaint: Chest Pain Stated Complaint: chest, arm pain - History of Present Illness Initial Comments: This note is for advanced triage purposes and is not meant to be a comprehensive history/physical: 57 year old male presents to the emergency department with a chief complaint of chest pain. He reports he will have chest pains that come and go at rest. He describes the pain as a dull ache that lasts for a "few seconds" that will resolve on its own. (Thalia Vegas) Patient is a 57-year-old male with past medical history remarkable for prior cardiac stents 2 who presents emergency Department complaining of intermittent chest pain on the left side. States it is located over the left chest and occasionally will radiate towards the neck. Typically just stays in the left chest. Does have a history of 2 stents. Describes a sharp sensation as for moments and then self resolves. This concerned regarding his heart as he does have a significant history for stents and blockages. States that previously when he's had very mild symptoms such as these, band of needing to stents his heart which is why he is concerned. Denies any shortness of breath. Denies any cough. Denies any nausea, vomiting, diaphoresis. Denies any abdominal pain. Patient was initially seen in triage and his workup was started.Patient denies any current chest pain. States it comes and goes without any known palliative or provocative factors. States that it was last here when he first arrived to the emergency department. (Luisito Steve) - Related Data Home Medications Medication Instructions Recorded Confirmed No Known Home Medications 07/31/22 07/31/22 Allergies Allergy/AdvReac Type Severity Reaction Status Date / Time No Known Allergies Allergy Verified 07/31/22 22:28 Review of Systems ROS Other: All systems not noted in ROS Statement are negative. <Thalia Vegas - Last Filed: 07/31/22 20:20> ROS Other: All systems not noted in ROS Statement are negative. <Luisito Steve - Last Filed: 08/01/22 01:25> ROS Statement: Those systems with pertinent positive or pertinent negative responses have been documented in the HPI. Review of Systems: CONST: [Denies fever] EYES: [Denies blurry vision] ENT: [Denies nasal congestion] C/V: Endorses chest pain RESP: [Denies shortness of breath] GI: [Denies abdominal pain] : [Denies dysuria] SKIN: [Denies rash.] MSK: [Denies joint pain.] NEURO: [Denies headache] (Luisito Steve) EKG Findings - EKG Comments: EKG Findings:: 12-lead Electrocardiogram Interpretation Note. EKG was reviewed and interpreted by myself. 12-lead ECG performed at 1836 is interpreted by me as revealing normal sinus rhythm at a rate of 72 beats per minute. [place] is normal. UT interval is 162 ms, QRS duration is 80 ms, QTc is 391 ms.. There were no acute ST or T wave abnormalities to suggest myocardial ischemia or injury. R wave progression across the precordium was satisfactory. By my interpretation this EKG is non-diagnostic for acute ischemia. When compared with With EKG from January 2021, no significant change. <Luisito Steve - Last Filed: 08/01/22 01:25> Past Medical History Past Medical History: Coronary Artery Disease (CAD), Chest Pain / Angina, Diabetes Mellitus, Hyperlipidemia, Hypertension, Osteoarthritis (OA) Additional Past Medical History / Comment(s): 2 stents placed February 2018 History of Any Multi-Drug Resistant Organisms: None Reported Past Surgical History: Heart Catheterization With Stent, Hernia Repair, Orthopedic Surgery Additional Past Surgical History / Comment(s): RT knee SX, stent to LAD in 03/2015(RT GROIN SITE WAS USED) Past Anesthesia/Blood Transfusion Reactions: No Reported Reaction Date of Last Stent Placement:: 03/2015 Past Psychological History: No Psychological Hx Reported Smoking Status: Never smoker Past Alcohol Use History: None Reported Past Drug Use History: None Reported - Past Family History Father History Unknown: Yes Family Medical History: Diabetes Mellitus, Hypertension Mother History Unknown: Yes Family Medical History: Cancer Additional Family Medical History / Comment(s): bladder <Thalia Vegas - Last Filed: 07/31/22 20:20> General Exam Limitations: no limitations <Thalia Vegas - Last Filed: 07/31/22 20:20> <PowerLuisito - Last Filed: 08/01/22 01:25> - General Exam Comments Initial Comments: General: Appears in no acute distress. HEAD: Normal with no signs of head trauma. EYES: PERRLA, EOMI, conjunctiva normal, no discharge. ENT: Hearing grossly intact, normal oropharynx. RESPIRATORY: Clear breath sounds bilaterally. No wheezes, rales, or rhonchi. C/V: Regular rate and rhythm. S1 and S2 auscultated, no edema, peripheral pulses 2+ and intact throughout ABD: Abd is soft, nontender, nondistended EXT: Normal range of motion, no obvious deformity SKIN: No rashes or lesions observed on exposed skin. NEURO: Alert and oriented x 4. Cranial nerves II-XII intact. No focal sensory or strength deficits. (Luisito Steve) Course Vital Signs 07/31/22 07/31/22 07/31/22 18:32 20:45 22:30 Temperature 98.0 F Pulse Rate 80 68 68 Respiratory 18 16 16 Rate Blood Pressure 193/83 166/104 O2 Sat by Pulse 97 97 97 Oximetry 07/31/22 08/01/22 08/01/22 22:42 00:14 01:10 Temperature Pulse Rate 68 64 70 Respiratory 16 16 16 Rate Blood Pressure 169/98 168/97 168/97 O2 Sat by Pulse 97 98 93 L Oximetry Chest Pain MDM <PowerLuisito - Last Filed: 08/01/22 01:25> - MDM Based on the patient's presentation and physical exam, I have concern for possible cardiopulmonary etiology for the patient's current symptoms. Workup was completed by the patient was in triage I evaluated the patient when he was placed in a room. Vital signs within acceptable limits. Exam is unremarkable. EKG shows no signs of acute ischemia. Chest x-ray shows no acute cardio pulmonary process. Laboratory studies are remarkable for an undetectable troponin. The remainder of the labs are unremarkable. I discussed at length with the patient admission versus discharge home. With his history, heart score 4, I did recommend admission for trending of troponins and evaluation by cardiology which she was in agreement with. He was given 324 mg of aspirin. We'll trend his troponins. He is currently symptomatic. He is in agreement with this plan. I spoke with the admitting physician, Dr. kramer who accepted the patient. Cardiology was consulted. Was pt. sent in by a medical professional or institution (, PA, [employer], urgent care, hospital, or snf...) When possible be specific @ -No Did you speak to anyone other than the patient for history (EMS, parent, family, police, friend...)? What history was obtained from this source @ -No Did you review nursing and triage notes (agree or disagree)? Why? @ -I reviewed and agree with nursing and triage notes Were old charts reviewed (outside hosp., previous admission, EMS record, old EKG, old radiological studies, urgent care reports/EKG's, snf records)? Report findings @ -Old charts, EKG were reviewed. Differential Diagnosis (chest pain, altered mental status, abdominal pain women, abdominal pain men, vaginal bleeding, weakness, fever, dyspnea, syncope, headache, dizziness, GI bleed, back pain, seizure, CVA, palpatations, mental health)? @ -Differential Chest Pain: Stable Angina, Unstable Angina, STEMI, NSTEMI Aortic Dissection, Pneumothorax, Musculoskeletal, Esophageal Spasm GERD, Cholecystitis, Pancreatitis, Zoster, this is not meant to be an all-inclusive list. EKG interpreted by me (3pts min.). @ -As above X-rays interpreted by me (1pt min.). @ -Chest x-ray revealed no acute cardiopulmonary process, infiltrate. CT interpreted by me (1pt min.). @ -None done U/S interpreted by me (1pt. min.). @ -None done What testing was considered but not performed or refused? (CT, X-rays, U/S, labs)? Why? @ -None What meds were considered but not given or refused? Why? @ -None Did you discuss the management of the patient with other professionals (professionals i.e. , PA, [employer], lab, RT, psych nurse, social studies department chair, crab fisherman, teacher, loans officer, case resource manager)? Give summary @ -No Was smoking cessation discussed for >3mins.? @ -No Was critical care preformed (if so, how long)? @ -No Were there social determinants of health that impacted care today? How? (Homelessness, low income, unemployed, alcoholism, drug addiction, transportation, low edu. Level, literacy, decrease access to med. care, long-term, rehab)? @ -No Was there de-escalation of care discussed even if they declined (Discuss DNR or withdrawal of care, Hospice)? DNR status @ -No What co-morbidities impacted this encounter? (DM, HTN, Smoking, COPD, CAD, Cancer, CVA, ARF, Chemo, Hep., AIDS, mental health diagnosis, sleep apnea, morbid obesity)? @ -CAD Was patient admitted / discharged? Hospital course, mention meds given and route, prescriptions, significant lab abnormalities, going to OR and other pertinent info. @ -Patient was admitted to the hospital. See above for ED course. Undiagnosed new problem with uncertain prognosis? @ -No Drug Therapy requiring intensive monitoring for toxicity (Heparin, Nitro, Insulin, Cardizem)? @ -No Were any procedures done? @ -No Diagnosis/symptom? @ -Acute chest pain in the setting of CAD and history of cardiac stents Acute, or Chronic, or Acute on Chronic? @ -Acute Uncomplicated (without systemic symptoms) or Complicated (systemic symptoms)? @ -Uncomplicated Side effects of treatment? @ -No Exacerbation, Progression, or Severe Exacerbation? @ -No Poses a threat to life or bodily function? How? (Chest pain, [place], [place], pneumonia, PE, COPD, DKA, ARF, appy, cholecystitis, CVA, Diverticulitis, Homicidal, Suicidal, threat to staff... and all critical care pts) @ -Yes, could be a sign of cardiac disease which can result in significant morbidity mortality. (Luisito Steve) Disposition <Thalia Vegas - Last Filed: 07/31/22 20:20> Time of Disposition: 22:55 <Luisito Steve - Last Filed: 08/01/22 01:25> Clinical Impression: Chest pain Disposition: ADMITTED IP TO THIS HOSP Condition: Stable
[2022-07-31] MEDS ORDERED: ASPIRIN 81 MG PO STA (22:22)
[2022-07-31 22:31] VITALS: RESP 16
[2022-07-31] MEDS ORDERED: NALOXONE 0.4 MG/ML 1 ML VIAL IV PRN (23:28)
[2022-08-01] MEDS: HEPARIN SODIUM,PORCINE/PF 5,000 UNIT/0.5 ML SYRINGE SQ SCH ×2 (00:11→08:11)
--- NOTE | 2022-08-01 02:21 | P.HPIM ---
History of Present Illness H&P Date: 07/31/22 The patient is a 57-year-old male with a PMH of CAD status post stents to the LAD and RCA, hypertension, type II DM, hyperlipidemia, who presents to the emergency room with complaints of left-sided chest and shoulder pain. The patient reports that over the past several weeks, he has been feeling more fatigued than usual. He also reports that he is experiencing nonexertional left sided upper chest, shoulder, and left arm pain, occurring intermittently for the past 2-3 days. He reports that these symptoms are similar to when he had his prior NM, which prompted him to come to the emergency room. Denied lower extremity swelling or pain. Also denied fever, chills, cough. Also denied experiencing shortness of breath, nausea, vomiting, diaphoresis, or palpitations. EKG emergency room revealed sinus rhythm at 72 bpm with T-wave inversion in lead III with Q waves in precordial lead V5 and V6 as well as 2, 3, and aVF. Chest x-ray was unremarkable. Laboratory evaluation revealed a troponin less than 0.012 with glucose 233. Review of systems: Pertinent positives and negatives as discussed in HPI, a complete review of systems was performed and all other systems are negative. Physical examination: General: non toxic, no distress, appears at stated age, overweight Derm: no unusual rashes/lesions, warm Head: atraumatic, normocephalic, symmetric Eyes: EOMI, no lid lag, anicteric sclera, pupils equal round reactive to light ENT: Nose and ears atraumatic Neck: No cervical lymphadenopathy, trachea midline, supple Mouth: no lip lesion, mucus membranes moist Cardiovascular: S1S2 reg, no murmur, positive dorsalis pedis pulse bilateral, no edema Lungs: CTA bilateral, no rhonchi, no rales, no accessory muscle use Abdominal: soft, nontender to palpation, no guarding Ext: muscle strength 5 out of 5 in all 4 extremities grossly, no gross muscle atrophy, no contractures, Neuro: CN II-XI grossly intact, no gross focal neuro deficits Psych: Alert, oriented, appropriate affect Assessment/plan Chest pain with atypical features -Cardiology consulted -Trend troponin -Cardiac monitoring -Status post aspirin in the emergency room Chronic conditions: Hypertension, hyperlipidemia, type II DM -Continue with home meds once reconciled DVT prophylaxis -Heparin subcu The patient is admitted with an anticipated less than 2 midnight stay for evaluation of chest pain CODE STATUS: Full Code Discussed with: Patient Anticipated discharge date: in am Anticipated discharge place: Home Past Medical History Past Medical History: Coronary Artery Disease (CAD), Chest Pain / Angina, Diabetes Mellitus, Hyperlipidemia, Hypertension, Osteoarthritis (OA) Additional Past Medical History / Comment(s): 2 stents placed February 2018 History of Any Multi-Drug Resistant Organisms: None Reported Past Surgical History: Heart Catheterization With Stent, Hernia Repair, Orthopedic Surgery Additional Past Surgical History / Comment(s): RT knee SX, stent to LAD in 03/2015(RT GROIN SITE WAS USED) Past Anesthesia/Blood Transfusion Reactions: No Reported Reaction Date of Last Stent Placement:: 03/2015 Past Psychological History: No Psychological Hx Reported Smoking Status: Never smoker Past Alcohol Use History: None Reported Past Drug Use History: None Reported - Past Family History Father History Unknown: Yes Family Medical History: Diabetes Mellitus, Hypertension Mother History Unknown: Yes Family Medical History: Cancer Additional Family Medical History / Comment(s): bladder Medications and Allergies Home Medications Medication Instructions Recorded Confirmed Type No Known Home Medications 07/31/22 07/31/22 History Allergies Allergy/AdvReac Type Severity Reaction Status Date / Time No Known Allergies Allergy Verified 07/31/22 22:28 Physical Exam Vitals: Vital Signs Temp Pulse Resp BP Pulse Ox 08/01/22 01:10 70 16 168/97 93 L 08/01/22 00:14 64 16 168/97 98 07/31/22 22:42 68 16 169/98 97 07/31/22 22:30 68 16 97 07/31/22 20:45 68 16 166/104 97 07/31/22 18:32 98.0 F 80 18 193/83 97 Intake and Output 07/31/22 07/31/22 08/01/22 14:59 22:59 06:59 Other: Weight 83.915 kg Results CBC & Chem 7: 07/31/22 18:36 07/31/22 18:36 Labs: Abnormal Lab Results - Last 24 Hours (Table) 07/31/22 Range/Units 18:36 Glucose 233 H (74-99) mg/dL
[2022-08-01 08:19] VITALS: BP 166/97; PULSE 70; TEMP 97.1
[2022-08-01 08:55] LABS: African American GFR (CKD) >90 (>60 ml/min/1.73 sqM); Anion Gap 7 mmol/L; Blood Urea Nitrogen 14 mg/dL (9-20); Calcium 8.7 mg/dL (8.4-10.2); Carbon Dioxide 27 mmol/L (22-30); Chloride 103 mmol/L (98-107); Glucose 219 mg/dL (74-99); Non-African American GFR(CKD) >90 (>60 ml/min/1.73 sqM); Potassium 3.8 mmol/L (3.5-5.1); Sodium 137 mmol/L (137-145)
[2022-08-01] MEDS ORDERED: LOSARTAN 25 MG TAB PO SCH (09:00)
[2022-08-01] MEDS ORDERED: ASPIRIN 81 MG PO SCH (09:00)
--- NOTE | 2022-08-01 09:20 | P.CRDCN ---
History of Present Illness Consult date: 08/01/22 History of present illness: HISTORY OF PRESENT ILLNESS: This is a 57-year-old male with a past medical history significant for hypertension, hyperlipidemia, and coronary artery disease with previous stenting of the LAD and right coronary artery. Patient follows in the office with Dr. Prince but has not been seen in the office since January 2021. We have been asked to see the patient in consultation for as pain. Patient examined at the bedside. P atient states he has been having chest pain on and off for the past few weeks. He states the pain radiates into his left shoulder blade. He also reports he has been feeling very fatigued for the past few weeks. He denies any shortness of breath. The patient states he stopped taking all of his medications including a baby aspirin. * EKG reveals sinus mechanism with nonspecific ST-T wave changes. * Chest xray negative for acute process * Laboratory data: WBC 8.1. Hemoglobin 16.1. Platelet count 182. Sodium 137. Potassium 3.8. BUN 14. Creatinine 0.75. Troponin negative 2 * Current home cardiac medications include none * Most recent echocardiogram obtained in February 2018 revealed ejection fraction 5055%, mild MR, mild TR * Cardiac catheterization history: January 2021 revealing patent stents within the LAD and right coronary artery REVIEW OF SYSTEMS: At the time of my exam: CONSTITUTIONAL: Denies fever or chills. HEENT: Denies blurred vision, vision changes, or eye pain. Denies hemoptysis CARDIOVASCULAR: Denies chest pain. Denies orthopnea. Denies PND. Denies palpitations RESPIRATORY: Denies shortness of breath. GASTROINTESTINAL: Denies abdominal pain. Denies nausea or vomiting. HEMATOLOGIC: Denies bleeding disorders. GENITOURINARY: Denies any blood in urine. SKIN: Denies pruitis. Denies rash. PHYSICAL EXAM: VITAL SIGNS: Reviewed. GENERAL: Well-developed in no acute distress. HEENT: Head is normocephalic. Pupils are equal, round. Sclerae anicteric. Mucous membranes of the mouth are moist. Neck supple. No JVD or thyromegaly LUNGS: Respirations even and unlabored. Lungs essentially clear to auscultation bilaterally. HEART: Regular rate and rhythm. S1 and S2 heard. ABDOMEN: Soft. Nondistended. Nontender. EXTREMITIES: Normal range of motion. No clubbing or cyanosis. Peripheral pulses intact. No lower extremity edema NEUROLOGIC: Awake and alert. Oriented x 3. ASSESSMENT: Chest pain, troponins negative 2 Coronary artery disease with previous PCI to LAD and RCA Hypertension Hyperlipidemia Medication noncompliance PLAN: An acute coronary event has been ruled out Begin atorvastatin 40 mg at night, losartan 25 mg daily, and aspirin 81 mg daily Hold off on adding beta blockers patients heart rate is in the 50s to 60s. Importance of medication compliance discussed with the patient Check lipid panel. Check hemoglobin A1c. Patient to undergo stress echo today. If negative he may be discharged home from a cardiac standpoint Nurse practitioner note has been reviewed by physician. Signing provider agrees with the documented findings, assessment, and plan of care. Past Medical History Past Medical History: Coronary Artery Disease (CAD), Chest Pain / Angina, Diabetes Mellitus, Hyperlipidemia, Hypertension, Osteoarthritis (OA) Additional Past Medical History / Comment(s): 2 stents placed February 2018 History of Any Multi-Drug Resistant Organisms: None Reported Past Surgical History: Heart Catheterization With Stent, Hernia Repair, Orthopedic Surgery Additional Past Surgical History / Comment(s): RT knee SX, stent to LAD in 03/2015(RT GROIN SITE WAS USED) Past Anesthesia/Blood Transfusion Reactions: No Reported Reaction Date of Last Stent Placement:: 03/2015 Past Psychological History: No Psychological Hx Reported Smoking Status: Never smoker Past Alcohol Use History: None Reported Past Drug Use History: None Reported - Past Family History Father History Unknown: Yes Family Medical History: Diabetes Mellitus, Hypertension Mother History Unknown: Yes Family Medical History: Cancer Additional Family Medical History / Comment(s): bladder Medications and Allergies Home Medications Medication Instructions Recorded Confirmed Type No Known Home Medications 07/31/22 07/31/22 History Allergies Allergy/AdvReac Type Severity Reaction Status Date / Time No Known Allergies Allergy Verified 07/31/22 22:28 Physical Exam Vitals: Vital Signs Temp Pulse Resp BP Pulse Ox 08/01/22 06:00 61 16 136/76 94 L 08/01/22 05:00 59 L 16 125/62 92 L 08/01/22 04:00 55 L 16 133/72 94 L 08/01/22 03:00 55 L 16 141/91 93 L 08/01/22 02:00 61 16 168/97 94 L 08/01/22 01:10 70 16 168/97 93 L 08/01/22 00:14 64 16 168/97 98 07/31/22 22:42 68 16 169/98 97 07/31/22 22:30 68 16 97 07/31/22 20:45 68 16 166/104 97 07/31/22 18:32 98.0 F 80 18 193/83 97 Intake and Output 07/31/22 08/01/22 08/01/22 22:59 06:59 14:59 Other: Weight 83.915 kg Results 07/31/22 18:36 08/01/22 07:58 Cardiac Enzymes 07/31/22 07/31/22 08/01/22 Range/Units 18:36 18:36 02:00 AST 27 (17-59) U/L Troponin I <0.012 <0.012 (0.000-0.034) ng/mL Coagulation 07/31/22 Range/Units 18:36 PT 11.6 (9.0-12.0) sec APTT 27.6 (22.0-30.0) sec CBC 07/31/22 Range/Units 18:36 WBC 8.1 (3.8-10.6) k/uL RBC 5.10 (4.30-5.90) m/uL Hgb 16.1 (13.0-17.5) gm/dL Hct 46.4 (39.0-53.0) % Plt Count 182 (150-450) k/uL Comprehensive Metabolic Panel 07/31/22 Range/Units 18:36 Sodium 137 (137-145) mmol/L Potassium 4.4 (3.5-5.1) mmol/L Chloride 101 (98-107) mmol/L Carbon Dioxide 29 (22-30) mmol/L BUN 18 (9-20) mg/dL Creatinine 0.86 (0.66-1.25) mg/dL Glucose 233 H (74-99) mg/dL Calcium 9.5 (8.4-10.2) mg/dL AST 27 (17-59) U/L ALT 38 (4-49) U/L Alkaline Phosphatase 60 (38-126) U/L Total Protein 7.6 (6.3-8.2) g/dL Albumin 4.6 (3.5-5.0) g/dL Current Medications Generic Name Dose Route Start Last Admin Trade Name Freq PRN Reason Stop Dose Admin Heparin Sodium (Porcine) 5,000 unit 08/01/22 00:00 08/01/22 00:11 Heparin Sodium,Porcine/Pf 5,000 Unit/0.5 Ml Syringe SQ 5,000 unit Q8HR CORA Administration Naloxone HCl 0.2 mg 07/31/22 23:28 Naloxone 0.4 Mg/Ml 1 Ml Vial IV Q2M PRN Opioid Reversal Intake and Output 07/31/22 08/01/22 08/01/22 22:59 06:59 14:59 Other: Weight 83.915 kg 07/31/22 18:36 07/31/22 18:36
[2022-08-01 09:21] LABS: Basophils % (A) 1 %; Eosinophils # (A) 0.1 k/uL (0-0.7); Eosinophils % (A) 2 %; HCT 46.1 % (39.0-53.0); HGB 15.9 gm/dL (13.0-17.5); Lymphocytes # (A) 1.4 k/uL (1.0-4.8); Lymphocytes % (A) 26 %; MCH 30.9 pg (25.0-35.0); MCHC 34.5 g/dL (31.0-37.0); MCV 89.5 fL (80.0-100.0); Mean Platelet Volume 8.5; Monocytes # (A) 0.4 k/uL (0-1.0); Monocytes % (A) 8 %; Neutrophils # (A) 3.3 k/uL (1.3-7.7); Neutrophils % (A) 62 %; Platelet Count 163 k/uL (150-450); RBC 5.15 m/uL (4.30-5.90); RDW 12.7 % (11.5-15.5); WBC 5.3 k/uL (3.8-10.6)
--- NOTE | 2022-08-01 11:10 | CA ---
Stress Echo Report Manish Manning Age: 57 Gender: M : 1965 Exam Date: 08/01/2022 10:01 Exam Location: [place] [facility] Ht (in): 67 Wt (lb): 185 Ordering Physician: Jane Mary Referring Physician: [id number] Camera Assembler: LUCAS Technologist Procedure CPT: Indication: CP ICD-9 Codes: Rhythm: Patient History: CHEST PAIN, HTN, DIABETES, ELEVATED CHOLESTEROL LEVELS, FAMILY HX OF HEART DISEASE, CARDIAC CATH X 2 Cardiac Medications: Medications in past 24 hours: Contrast: Stress Results Protocol: [place] Total dose(mL): Exercise Duration (min:sec): 5:[address] Depression (mm): Angina Score: [place] Score: METS: 7.0 Resting HR: 91 Resting BP: 161 / 86 Peak HR: 153 Peak BP: 237 / 84 Max Predicted HR: 162 94 % Max Predicted HR Target HR: 138 Double Product: [id number] Stress Summary: BP Response: Reason for Termination: MAX EXERTION/TARGET HR, DIRECTED PER BRIDGE CRANE OPERATOR Cardiac Symptoms: NO SYMPTOMS ECG Analysis Resting ECG: Stress ECG: Arrhythmia: Echo Analysis Resting Echo: Peak Echo Analysis: MEASUREMENTS (Male/Female) Normal Values CONCLUSIONS Baseline heart rate 72 beats a minute, Baseline blood pressure 184/92 mmHg Baseline EKG shows normal sinus rhythm with minimal ST depression in the inferior leads Patient exercised on a [place] protocol for only 5 minutes achieving a peak heart rate of 151 beats a minute Hypertensive response to exercise. Peak blood pressure 137/84 mmHg No symptoms No ECG is for ischemia and no arrhythmias Baseline 2-D echo showed normal LV systolic function without segmental wall motion abnormalities At peak exercise there was excellent augmentation overall and contractility without development of any wall motion abnormalities @Recovery regional global LV systolic function with normal Impression Low average exercise capacity No ECG or echocardiographic evidence for ischemia Dr. Beni Marion MD (Electronically Signed) Final Date: 01 August 2022 11:09
--- NOTE | 2022-08-01 14:17 | P.DS ---
Providers Date of admission: 07/31/22 23:33 Expected date of discharge: 08/01/22 Attending physician: Lisandra Kennedy MD [facility] Course: The patient is a 57-year-old male with a PMH of CAD status post stents to the LAD and RCA, hypertension, type II DM, hyperlipidemia, who presents to the emergency room with complaints of left-sided chest and shoulder pain. The patient reports that over the past several weeks, he has been feeling more fatigued than usual. He also reports that he is experiencing nonexertional left sided upper chest, shoulder, and left arm pain, occurring intermittently for the past 2-3 days. He reports that these symptoms are similar to when he had his prior IN, which prompted him to come to the emergency room. Denied lower extremity swelling or pain. Also denied fever, chills, cough. Also denied experiencing shortness of breath, nausea, vomiting, diaphoresis, or palpitations. EKG emergency room revealed sinus rhythm at 72 bpm with T-wave inversion in lead III with Q waves in precordial lead V5 and V6 as well as 2, 3, and aVF. Chest x-ray was unremarkable. Laboratory evaluation revealed a troponin less than 0.012 with glucose 233. Troponins were trended and ACS was ruled out. Cardiology was consulted and recommended stress echo. Cardiology started the patient on Lipitor, losartan and aspirin. Stress test was negative. Patient was cleared from cardiology perspective for discharge. Pertinent studies include chest x-ray, stress echo. Physical examination: General: non toxic, no distress, appears at stated age, overweight Derm: no unusual rashes/lesions, warm Head: atraumatic, normocephalic, symmetric Eyes: EOMI, no lid lag, anicteric sclera ENT: Nose and ears atraumatic Neck: No cervical lymphadenopathy, trachea midline, supple Mouth: no lip lesion, mucus membranes moist Cardiovascular: S1S2 reg, no murmur, no edema Lungs: CTA bilateral, no rhonchi, no rales, no accessory muscle use Ext: muscle strength 5 out of 5 in all 4 extremities grossly, no gross muscle atrophy, no contractures, Neuro: no gross focal neuro deficits Psych: Alert, oriented, appropriate affect Discharge diagnosis: Chest pain with atypical features Chronic conditions: Hypertension, hyperlipidemia, type II DM This complex discharge took 35 minutes to complete. Patient Condition at Discharge: Stable Plan - Discharge Summary Discharge Rx Participant: Yes New Discharge Prescriptions: New Losartan [Cozaar] 25 mg PO DAILY #30 tab Atorvastatin [Lipitor] 40 mg PO HS #30 tab Aspirin 81 mg PO DAILY #30 tab Discharge Medication List Aspirin 81 mg PO DAILY #30 tab 08/01/22 [Rx] Atorvastatin [Lipitor] 40 mg PO HS #30 tab 08/01/22 [Rx] Losartan [Cozaar] 25 mg PO DAILY #30 tab 08/01/22 [Rx] Follow up Appointment(s)/Referral(s): Prabhakar Osborne DO [Primary Care Provider] - 1-2 days (PLEASE CALL AND SCHEDULE APPOINTMENT.) Teofilo Prince MD [STAFF PHYSICIAN] - 08/08/22 8:45 am Patient Instructions/Handouts: Aspirin (By mouth), Losartan (By mouth), Atorvastatin (By mouth), Chest Pain (DC) Activity/Diet/Wound Care/Special Instructions: Diet: Cardiac Discharge Disposition: HOME SELF-CARE
[2022-08-01] MEDS ORDERED: ATORVASTATIN 40 MG TAB PO SCH (21:00)
[2022-08-01 22:58] LABS: Chol/HDL Ratio 7.24 Ratio; LDL Cholesterol,Calculated 170.5 mg/dL (0.0-131.0)
== END 2022-08-01 14:23 | disposition home or self-care (01) ==
LOC: EC 18:26 → 6NMEDSUR 23:33
PROVIDERS: ADMIT Internal Medicine; ATTEND Internal Medicine
DX: R07.89 Other chest pain (principal); M25.512 Pain in left shoulder; M79.602 Pain in left arm; I10 Essential (primary) hypertension; E78.5 Hyperlipidemia, unspecified; E11.9 Type 2 diabetes mellitus without complications; I25.10 Atherosclerotic heart disease of native coronary artery without angina pectoris; Z91.128 Patient's intentional underdosing of medication regimen for other reason; M19.90 Unspecified osteoarthritis, unspecified site; Z95.5 Presence of coronary angioplasty implant and graft; Z98.890 Other specified postprocedural states; Z83.3 Family history of diabetes mellitus; Z82.49 Family history of ischemic heart disease and other diseases of the circulatory system; Z80.52 Family history of malignant neoplasm of bladder; Z79.82 Long term (current) use of aspirin; Z79.899 Other long term (current) drug therapy
CPT/HCPCS: 96372; 99285; 36415; 93005; 93351; 80061; 80053; 80048; 83735; 84484 ×2; 85025 ×2; 85610; 85730; 83036; 71046; G0378 ×2; J1644

== ENCOUNTER → 2024-02-22 | Outpatient (CLI) | payer MEDICAID | END | disposition home or self-care (01) | LOC: LABPRL 16:59 | PROVIDERS: ATTEND Family Medicine | CPT/HCPCS: 80053; 80061; 82550; 83036; 84153; 84443; 85025 ==

== ENCOUNTER → 2024-02-24 | Outpatient (CLI) | payer MEDICAID | END | disposition home or self-care (01) | LOC: LABPRL 16:59 | PROVIDERS: ATTEND Family Medicine | DX: Z12.5 Encounter for screening for malignant neoplasm of prostate (principal); I10 Essential (primary) hypertension; I25.10 Atherosclerotic heart disease of native coronary artery without angina pectoris; E66.9 Obesity, unspecified; E78.2 Mixed hyperlipidemia; E55.9 Vitamin D deficiency, unspecified; E11.65 Type 2 diabetes mellitus with hyperglycemia; Z79.899 Other long term (current) drug therapy | CPT/HCPCS: 82043; 82570 ==